=== PATIENT | male | born 1970 | race Caucasian/White ===

== ENCOUNTER 2016-07-07 16:45 | Inpatient (IN) | payer MEDICARE ==
[~2016-07-07] VITALS: Ht 175.3 cm; Wt 80.0 kg
[2016-07-07] VITALS (7 sets, daily range): BP systolic 101–117; BP diastolic 60–80
[~2016-07-07 16:45] MED LIST: DULO60CA44 PO; PANT40TA25 PO; QUET200T PO
[2016-07-07] MEDS ORDERED: ZOLPIDEM TARTRATE 10 MG TABLET PO PRN (17:15)
[2016-07-08] VITALS (7 sets, daily range): BP systolic 101–113; BP diastolic 62–72
[2016-07-08 08:14] LABS: BASOPHILS % (AUTO) 0.8 % (0.0-2.0); EOSINOPHILS % (AUTO) 6.2 % (1.0-6.0); HEMATOCRIT 53.8 % (41-53); HEMOGLOBIN 17.6 g/dL (13.5-17.5); LYMPHOCYTES # (AUTO) 1.7 K/uL (1.0-4.8); LYMPHOCYTES % (AUTO) 32.2 % (22.0-44.0); MEAN CORPUSCULAR HEMOGLOBIN 33.6 pg (26.0-34.0); MEAN CORPUSCULAR HGB CONC 32.8 G/dL (31.0-37.0); MEAN CORPUSCULAR VOLUME 103 fL (80-100); MONOCYTES # (AUTO) 0.5 K/uL (0.1-1.0); MONOCYTES % (AUTO) 10.5 % (2.0-9.0); NEUTROPHILS # (AUTO) 2.6 K/uL (1.8-7.7); NEUTROPHILS % (AUTO) 50.3 % (40.0-70.0); PLATELET COUNT (AUTO) 162 K/uL (150-450); RED BLOOD CELL COUNT(AUTO) 5.24 MIL/uL (4.50-5.90); WHITE BLOOD COUNT (AUTO) 5.2 K/uL (4.5-11.0)
[2016-07-08 08:16] LABS: HEMOGLOBIN A1C 5.1 % (4.5-6.2)
[2016-07-08 08:35] LABS: ALANINE AMINOTRANSFERASE 35 U/L (12-78); ALBUMIN 3.5 g/dL (3.4-5.0); ANION GAP 8 mmol/L (8-16); ASPARTATE AMINOTRANSFERASE 30 U/L (15-37); BILIRUBIN,TOTAL 0.5 mg/dL (0.1-1.0); CALCIUM, TOTAL 8.8 mg/dL (8.8-10.5); CARBON DIOXIDE 29 mmol/L (22-29); CHLORIDE 102 mmol/L (98-107); GLOMERULAR FILTR. RATE CALC > 60 mL/min (>60); POTASSIUM 3.8 mmol/L (3.5-5.1); SODIUM SERUM 139 mmol/L (136-145); THYROID STIMULATING HORMONE 1.51 uIU/mL (0.36-3.74); TOTAL PROTEIN, SERUM 6.9 g/dL (6.4-8.2); UREA NITROGEN, BLOOD 12 mg/dL (7-18)
[2016-07-08 08:50] LABS: RBC MORPHOLOGY COMMENT ABNORMAL RBC MORPH
[2016-07-08 08:51] LABS: CREATINE KINASE MB 0.5 ng/mL (0-5); CREATINE KINASE, TOTAL 86 U/L (39-308)
[2016-07-08] MEDS: PANTOPRAZOLE SODIUM 40 MG DR TABLET PO SCH (09:05)
[2016-07-08] MEDS: NICOTINE 14 MG/24 HOUR PATCH TD SCH (09:06)
[2016-07-08] MEDS: LORazepam 2 MG TABLET PO PRN ×2 (09:10→16:22)
[2016-07-08] MEDS: DULoxetine HCL 60 MG CAPSULE PO SCH (10:39)
[2016-07-08] MEDS: QUEtiapine FUMARATE 200 MG TABLET PO SCH (20:33)
[2016-07-09 06:39] VITALS: BP 107/63
[2016-07-09] MEDS: DULoxetine HCL 60 MG CAPSULE PO SCH (08:28)
[2016-07-09] MEDS: PANTOPRAZOLE SODIUM 40 MG DR TABLET PO SCH (08:28)
[2016-07-09] MEDS: NICOTINE 14 MG/24 HOUR PATCH TD SCH (08:28)
[2016-07-09] MEDS: LORazepam 2 MG TABLET PO PRN (08:34)
[2016-07-09 15:10] LABS: HEPATITIS Bs ANTIGEN SCREEN P Negative (Negative); HEPATITIS C AB SCREEN <0.1 s/co ratio (0.0-0.9)
[2016-07-09 16:08] VITALS: BP 104/62
[2016-07-09] MEDS: QUEtiapine FUMARATE 200 MG TABLET PO SCH (20:37)
[2016-07-10] VITALS: BP 103/69
[2016-07-10 00:04] VITALS: BP 101/66
[2016-07-10 08:11] VITALS: BP 111/67
[2016-07-10] MEDS: PANTOPRAZOLE SODIUM 40 MG DR TABLET PO SCH (08:32)
[2016-07-10] MEDS: NICOTINE 14 MG/24 HOUR PATCH TD SCH (08:33)
[2016-07-10] MEDS: DULoxetine HCL 60 MG CAPSULE PO SCH (08:33)
[2016-07-10] MEDS: LORazepam 2 MG TABLET PO PRN (08:39)
[2016-07-10 16:07] VITALS: BP 105/65
[2016-07-10] MEDS: QUEtiapine FUMARATE 200 MG TABLET PO SCH (20:35)
[2016-07-11 00:44] VITALS: BP 103/62
[2016-07-11 08:08] VITALS: BP 108/62
[2016-07-11 08:21] LABS: BASOPHILS # (AUTO) 0.02 K/uL (0.00-0.20); BASOPHILS % (AUTO) 0.4 % (0.0-2.0); EOSINOPHILS # (AUTO) 0.38 K/uL (0.00-0.70); EOSINOPHILS % (AUTO) 6.86 % (1.0-6.0); HEMATOCRIT 52.8 % (41-53); HEMOGLOBIN 17.7 g/dL (13.5-17.5); LYMPHOCYTES # (AUTO) 1.8 K/uL (1.0-4.8); LYMPHOCYTES % (AUTO) 31.4 % (22.0-44.0); MEAN CORPUSCULAR HEMOGLOBIN 34.5 pg (26.0-34.0); MEAN CORPUSCULAR HGB CONC 33.5 G/dL (31.0-37.0); MEAN CORPUSCULAR VOLUME 103 fL (80-100); MONOCYTES # (AUTO) 0.6 K/uL (0.1-1.0); MONOCYTES % (AUTO) 11.3 % (2.0-9.0); NEUTROPHILS # (AUTO) 2.8 K/uL (1.8-7.7); PLATELET COUNT (AUTO) 178 K/uL (150-450); RED BLOOD CELL COUNT(AUTO) 5.13 MIL/uL (4.50-5.90); RED CELL DISTRIBUTION WIDTH 13.9 % (11.5-14.5); WHITE BLOOD COUNT (AUTO) 5.6 K/uL (4.5-11.0)
[2016-07-11] MEDS: PANTOPRAZOLE SODIUM 40 MG DR TABLET PO SCH (08:22)
[2016-07-11] MEDS: DULoxetine HCL 60 MG CAPSULE PO SCH (08:22)
[2016-07-11] MEDS: NICOTINE 14 MG/24 HOUR PATCH TD SCH (08:23)
[2016-07-11 08:49] LABS: RBC MORPHOLOGY COMMENT ABNORMAL RBC MORPH
[2016-07-11 08:51] LABS: ALANINE AMINOTRANSFERASE 39 U/L (12-78); ALBUMIN 3.4 g/dL (3.4-5.0); ANION GAP 4 mmol/L (8-16); ASPARTATE AMINOTRANSFERASE 30 U/L (15-37); BILIRUBIN,TOTAL 0.4 mg/dL (0.1-1.0); CARBON DIOXIDE 32 mmol/L (22-29); CHLORIDE 102 mmol/L (98-107); CREATINE KINASE, TOTAL 48 U/L (39-308); CREATININE 0.96 mg/dL (0.60-1.30); GLOMERULAR FILTR. RATE CALC > 60 mL/min (>60); POTASSIUM 4.5 mmol/L (3.5-5.1); SODIUM SERUM 138 mmol/L (136-145); TOTAL PROTEIN, SERUM 6.5 g/dL (6.4-8.2); UREA NITROGEN, BLOOD 18 mg/dL (7-18)
[2016-07-11] MEDS: LORazepam 2 MG TABLET PO PRN ×2 (09:00→14:57)
[2016-07-11 16:00] VITALS: BP 116/71
[2016-07-11] MEDS: QUEtiapine FUMARATE 200 MG TABLET PO SCH (20:45)
[2016-07-12 00:05] VITALS: BP 106/64
[2016-07-12] MEDS: PANTOPRAZOLE SODIUM 40 MG DR TABLET PO SCH (08:01)
[2016-07-12] MEDS: DULoxetine HCL 60 MG CAPSULE PO SCH (08:01)
[2016-07-12] MEDS: NICOTINE 14 MG/24 HOUR PATCH TD SCH (08:01)
[2016-07-12 08:58] LABS: APPEARANCE,URINE CLEAR (CLEAR); GLUCOSE, URINE (UA) NEGATIVE (NEGATIVE); KETONES,URINE NEGATIVE (NEGATIVE); LEUKOCYTE ESTERASE ,URINE TRACE (NEGATIVE); OCCULT BLOOD,URINE NEGATIVE (NEGATIVE); PROTEIN,URINE NEGATIVE (NEGATIVE)
[2016-07-12 09:31] LABS: ADD UA MICROSCOPIC YES
[2016-07-12 09:41] LABS: RBC,URINE None Seen /HPF (0-2); SQUAMOUS EPITHELIAL CELL,UR Few /LPF (None Seen); WBC,URINE 0-2 /HPF (0-5)
[2016-07-12] MEDS: LORazepam 2 MG TABLET PO PRN (14:44)
[2016-07-12 16:02] VITALS: BP 110/67
[2016-07-12] MEDS: QUEtiapine FUMARATE 200 MG TABLET PO SCH (20:21)
[2016-07-13 06:31] VITALS: BP 100/68
[2016-07-13 07:57] VITALS: BP 101/60
[2016-07-13 08:33] VITALS: BP 101/60
[2016-07-13] MEDS: NICOTINE 14 MG/24 HOUR PATCH TD SCH (08:45)
[2016-07-13] MEDS: DULoxetine HCL 60 MG CAPSULE PO SCH (08:45)
[2016-07-13] MEDS: PANTOPRAZOLE SODIUM 40 MG DR TABLET PO SCH (08:45)
[2016-07-13] MEDS: LORazepam 2 MG TABLET PO PRN ×2 (12:14→17:27)
[2016-07-13 16:05] VITALS: BP 101/72
[2016-07-13] MEDS: QUEtiapine FUMARATE 200 MG TABLET PO SCH (20:38)
[2016-07-14 07:09] VITALS: BP 121/72
[2016-07-14] MEDS: DULoxetine HCL 60 MG CAPSULE PO SCH (08:15)
[2016-07-14] MEDS: LORazepam 2 MG TABLET PO PRN (08:15)
[2016-07-14] MEDS: PANTOPRAZOLE SODIUM 40 MG DR TABLET PO SCH (08:15)
[2016-07-14] MEDS: NICOTINE 14 MG/24 HOUR PATCH TD SCH (08:15)
[2016-07-14 08:24] VITALS: BP 106/74
== END 2016-07-14 12:20 | disposition home or self-care (01) | DRG 885 ==
LOC: B2X 17:25 → B2S 17:25 → EDSTATUS 17:27
PROVIDERS: ADMIT Psychiatry & Neurology Child & Adolescent Psychiatry; ATTEND Psychiatry & Neurology Child & Adolescent Psychiatry
DX: F31.4 Bipolar disorder, current episode depressed, severe, without psychotic features (principal); N39.0 Urinary tract infection, site not specified; R45.851 Suicidal ideations; K21.9 Gastro-esophageal reflux disease without esophagitis; E88.09 Other disorders of plasma-protein metabolism, not elsewhere classified; E78.5 Hyperlipidemia, unspecified; D75.1 Secondary polycythemia; F15.10 Other stimulant abuse, uncomplicated; F17.210 Nicotine dependence, cigarettes, uncomplicated; K70.10 Alcoholic hepatitis without ascites; G47.00 Insomnia, unspecified; F19.10 Other psychoactive substance abuse, uncomplicated; Z59.9 Problem related to housing and economic circumstances, unspecified; Z71.89 Other specified counseling; Z82.49 Family history of ischemic heart disease and other diseases of the circulatory system; Z82.3 Family history of stroke; Z79.899 Other long term (current) drug therapy
CPT/HCPCS: 80074; 83036; 83735; 84439; 84443

== ENCOUNTER 2016-11-08 21:31 | Inpatient (IN) | payer MEDICARE ==
[~2016-11-08] VITALS: Ht 175.3 cm; Wt 77.7 kg
[2016-11-08] MEDS ORDERED: HALOPERIDOL 5 MG TABLET PO PRN (22:15)
[2016-11-08] MEDS ORDERED: ZOLPIDEM TARTRATE 10 MG TABLET PO PRN (22:15)
[2016-11-08 22:19] VITALS: BP 114/76
[2016-11-09 00:02] VITALS: BP 119/83
[2016-11-09] MEDS ORDERED: INFLUENZA VIRUS VACCINE QVS 2017-18 (3YR+)/PF 60 MCG/0.5 ML SYRINGE IM ONE (00:15)
[2016-11-09] MEDS: LORazepam 2 MG TABLET PO PRN ×3 (00:18→17:14)
[2016-11-09 07:36] LABS: BASOPHILS % (AUTO) 0.8 % (0.0-2.0); EOSINOPHILS % (AUTO) 2.9 % (1.0-6.0); HEMATOCRIT 45.7 % (41-53); HEMOGLOBIN 15.7 g/dL (13.5-17.5); LYMPHOCYTES # (AUTO) 2.3 K/uL (1.0-4.8); LYMPHOCYTES % (AUTO) 36.4 % (22.0-44.0); MEAN CORPUSCULAR HEMOGLOBIN 35.4 pg (26.0-34.0); MEAN CORPUSCULAR HGB CONC 34.5 G/dL (31.0-37.0); MEAN CORPUSCULAR VOLUME 103 fL (80-100); MONOCYTES # (AUTO) 0.7 K/uL (0.1-1.0); MONOCYTES % (AUTO) 11.1 % (2.0-9.0); NEUTROPHILS # (AUTO) 3.1 K/uL (1.8-7.7); NEUTROPHILS % (AUTO) 48.8 % (40.0-70.0); PLATELET COUNT (AUTO) 197 K/uL (150-450); RED BLOOD CELL COUNT(AUTO) 4.44 MIL/uL (4.50-5.90); RED CELL DISTRIBUTION WIDTH 12.8 % (11.5-14.5); WHITE BLOOD COUNT (AUTO) 6.3 K/uL (4.5-11.0)
[2016-11-09 07:51] LABS: ALANINE AMINOTRANSFERASE 48 U/L (12-78); ALBUMIN 3.3 g/dL (3.4-5.0); ANION GAP 9 mmol/L (8-16); ASPARTATE AMINOTRANSFERASE 53 U/L (15-37); BILIRUBIN,TOTAL 0.4 mg/dL (0.1-1.0); CALCIUM, TOTAL 9.7 mg/dL (8.8-10.5); CARBON DIOXIDE 32 mmol/L (22-29); CHLORIDE 99 mmol/L (98-107); CHOL/HDL RATIO 3.1 (4.2-7.3); CREATININE 0.88 mg/dL (0.60-1.30); GLOMERULAR FILTR. RATE CALC > 60 mL/min (>60); POTASSIUM 4.2 mmol/L (3.5-5.1); SODIUM SERUM 140 mmol/L (136-145); TOTAL PROTEIN, SERUM 6.7 g/dL (6.4-8.2); UREA NITROGEN, BLOOD 11 mg/dL (7-18)
[2016-11-09 07:55] LABS: HEMOGLOBIN A1C 4.9 % (4.5-6.2)
[2016-11-09 08:17] VITALS: BP 115/69
[2016-11-09] MEDS: NICOTINE 21 MG/24 HOUR PATCH TD SCH (08:41)
[2016-11-09] MEDS ORDERED: NICOTINE 21 MG/24 HOUR PATCH TD SCH (09:00)
[2016-11-09 09:49] LABS: RBC MORPHOLOGY COMMENT ABNORMAL RBC MORPH
[2016-11-09] MEDS: PANTOPRAZOLE SODIUM 40 MG DR TABLET PO SCH (10:29)
[2016-11-09 16:11] VITALS: BP 105/72
[2016-11-10 06:03] VITALS: BP 104/60
[2016-11-10] MEDS: DULoxetine HCL 60 MG CAPSULE PO SCH (08:18)
[2016-11-10] MEDS: NICOTINE 21 MG/24 HOUR PATCH TD SCH (08:18)
[2016-11-10] MEDS: PANTOPRAZOLE SODIUM 40 MG DR TABLET PO SCH (08:18)
[2016-11-10] MEDS: LORazepam 2 MG TABLET PO PRN ×2 (08:29→15:39)
[2016-11-10 08:39] VITALS: BP 108/69
[2016-11-10 16:11] VITALS: BP 112/78
[2016-11-10] MEDS: QUEtiapine FUMARATE 200 MG TABLET PO SCH (20:35)
[2016-11-11 01:49] VITALS: BP 100/60
[2016-11-11 08:50] VITALS: BP 98/62
[2016-11-11] MEDS: DULoxetine HCL 60 MG CAPSULE PO SCH (09:17)
[2016-11-11] MEDS: NICOTINE 21 MG/24 HOUR PATCH TD SCH (09:17)
[2016-11-11] MEDS: PANTOPRAZOLE SODIUM 40 MG DR TABLET PO SCH (09:17)
[2016-11-11] MEDS: LORazepam 2 MG TABLET PO PRN (13:27)
[2016-11-11 16:26] VITALS: BP 99/75
[2016-11-11] MEDS: QUEtiapine FUMARATE 200 MG TABLET PO SCH (20:34)
[2016-11-12 00:51] VITALS: BP 101/67
[2016-11-12 08:09] VITALS: BP 106/68
[2016-11-12] MEDS: PANTOPRAZOLE SODIUM 40 MG DR TABLET PO SCH (08:35)
[2016-11-12] MEDS: DULoxetine HCL 60 MG CAPSULE PO SCH (08:35)
[2016-11-12] MEDS: NICOTINE 21 MG/24 HOUR PATCH TD SCH (08:35)
[2016-11-12] MEDS: LORazepam 2 MG TABLET PO PRN ×2 (09:58→16:00)
[2016-11-12 16:08] VITALS: BP 112/72
[2016-11-12] MEDS: QUEtiapine FUMARATE 200 MG TABLET PO SCH (20:58)
[2016-11-13 00:55] VITALS: BP 110/67
[2016-11-13 09:07] VITALS: BP 103/61
[2016-11-13] MEDS: DULoxetine HCL 60 MG CAPSULE PO SCH (09:07)
[2016-11-13] MEDS: PANTOPRAZOLE SODIUM 40 MG DR TABLET PO SCH (09:07)
[2016-11-13] MEDS: NICOTINE 21 MG/24 HOUR PATCH TD SCH (09:07)
[2016-11-13 11:10] VITALS: BP 110/77
[2016-11-13] MEDS: LORazepam 2 MG TABLET PO PRN ×2 (11:14→15:57)
[2016-11-13 16:23] VITALS: BP 109/69
[2016-11-13] MEDS: QUEtiapine FUMARATE 200 MG TABLET PO SCH (20:37)
[2016-11-14 00:09] VITALS: BP 103/66
[2016-11-14] MEDS: DULoxetine HCL 60 MG CAPSULE PO SCH (08:36)
[2016-11-14] MEDS: PANTOPRAZOLE SODIUM 40 MG DR TABLET PO SCH (08:36)
[2016-11-14] MEDS: NICOTINE 21 MG/24 HOUR PATCH TD SCH (08:37)
[2016-11-14 08:42] VITALS: BP 105/63
[2016-11-14] MEDS ORDERED: ACETAMINOPHEN 325 MG TABLET PO PRN (11:00)
== END 2016-11-14 13:10 | disposition home or self-care (01) | DRG 885 ==
LOC: B2X 22:04 → EDSTATUS 22:06
PROVIDERS: ADMIT Psychiatry & Neurology Psychiatry; ATTEND Psychiatry & Neurology Child & Adolescent Psychiatry
DX: F25.1 Schizoaffective disorder, depressive type (principal); F31.4 Bipolar disorder, current episode depressed, severe, without psychotic features; R45.851 Suicidal ideations; E78.5 Hyperlipidemia, unspecified; F15.10 Other stimulant abuse, uncomplicated; R51 Headache; K21.9 Gastro-esophageal reflux disease without esophagitis; Z72.89 Other problems related to lifestyle; Z79.899 Other long term (current) drug therapy
CPT/HCPCS: 83036; 84439; 84443; 90471; 99285

== ENCOUNTER 2017-06-29 11:43 | Inpatient (IN) | payer MEDICARE, MEDICAID ==
[~2017-06-29] VITALS: Ht 175.3 cm; Wt 79.1 kg
[2017-06-29 14:27] VITALS: BP 94/67
[2017-06-29] MEDS ORDERED: MAG HYDROX/AL HYDROX/SIMETH ES 30 ML SUSPENSION UDCUP PO PRN (14:45)
[2017-06-29] MEDS ORDERED: HydrOXYzine PAMOATE 50 MG CAPSULE PO PRN ×2 (14:45)
[2017-06-29] MEDS ORDERED: TUBERCULIN, PURIFIED PROTEIN DERIVATIVE 5 TU/0.1 ML SYG ID ONE (14:45)
[2017-06-29] MEDS ORDERED: ACETAMINOPHEN 325 MG TABLET PO PRN (14:45)
[2017-06-29] MEDS ORDERED: QUEtiapine FUMARATE 100 MG TABLET PO PRN (14:45)
[2017-06-29] MEDS ORDERED: DIAZEPAM 10 MG TABLET PO PRN ×2 (14:45)
[2017-06-29] MEDS ORDERED: CYANOCOBALAMIN 1,000 MCG/ML VIAL IM ONE ×2 (14:45)
[2017-06-29] MEDS ORDERED: MAGNESIUM HYDROXIDE SUSPENSION 30 ML UDCUP PO PRN (14:45)
[2017-06-29] MEDS ORDERED: GuaiFENesin/D-METHORPHAN [SUGAR-FREE] 200-20MG/10 ML SYRUP UDCUP PO PRN ×2 (14:45)
[2017-06-29] MEDS ORDERED: PROMETHAZINE HCL 25 MG TABLET PO PRN (14:45)
[2017-06-29] MEDS ORDERED: LOPERAMIDE HCL 2 MG CAPSULE PO PRN ×2 (14:45)
[2017-06-29] MEDS ORDERED: GABA-531 PO (15:17)
[2017-06-29 15:30] VITALS: BP 110/69
[2017-06-29 16:05] VITALS: BP_SYST 105; BP_SYST 107; BP_DIAS 64; BP_DIAS 67
[2017-06-29] MEDS ORDERED: THIAMINE HCL 100 MG TABLET PO SCH (17:00)
[2017-06-29 17:05] VITALS: BP 101/61
[2017-06-29] MEDS: THIAMINE HCL 100 MG TABLET PO SCH (17:28)
[2017-06-29 18:01] VITALS: BP 105/68
[2017-06-29] MEDS: QUEtiapine FUMARATE 100 MG TABLET PO SCH (21:02)
[2017-06-29 22:11] VITALS: BP 112/60
[2017-06-30] VITALS (8 sets, daily range): BP systolic 101–123; BP diastolic 61–71
[2017-06-30] MEDS ORDERED: DIAZEPAM 10 MG TABLET PO PRN ×2 (07:00)
[2017-06-30 08:55] LABS: BASOPHILS % (AUTO) 0.7 % (0.0-2.0); EOSINOPHILS % (AUTO) 5.1 % (1.0-6.0); HEMATOCRIT 42.8 % (41-53); HEMOGLOBIN 15.2 g/dL (13.5-17.5); LYMPHOCYTES # (AUTO) 1.2 K/uL (1.0-4.8); LYMPHOCYTES % (AUTO) 30.3 % (22.0-44.0); MEAN CORPUSCULAR HEMOGLOBIN 34.6 pg (26.0-34.0); MEAN CORPUSCULAR HGB CONC 35.6 G/dL (31.0-37.0); MEAN CORPUSCULAR VOLUME 97 fL (80-100); MONOCYTES # (AUTO) 0.5 K/uL (0.1-1.0); MONOCYTES % (AUTO) 12.6 % (2.0-9.0); NEUTROPHILS % (AUTO) 51.3 % (40.0-70.0); PLATELET COUNT (AUTO) 199 K/uL (150-450); RED CELL DISTRIBUTION WIDTH 12.9 % (11.5-14.5)
[2017-06-30] MEDS ORDERED: DIAZEPAM 10 MG TABLET PO SCH (09:00)
[2017-06-30] MEDS ORDERED: FOLIC ACID 1 MG TABLET PO SCH (09:00)
[2017-06-30] MEDS ORDERED: MULTIVITAMINS WITH MINERALS, THERAPEUTIC TABLET PO SCH (09:00)
[2017-06-30] MEDS: DIAZEPAM 10 MG TABLET PO SCH ×4 (09:18→20:52)
[2017-06-30] MEDS: MULTIVITAMINS WITH MINERALS, THERAPEUTIC TABLET PO SCH (09:18)
[2017-06-30] MEDS: FOLIC ACID 1 MG TABLET PO SCH (09:18)
[2017-06-30] MEDS: PANTOPRAZOLE SODIUM 40 MG DR TABLET PO SCH (09:18)
[2017-06-30] MEDS: THIAMINE HCL 100 MG TABLET PO SCH ×2 (09:19→17:02)
[2017-06-30] MEDS: DULoxetine HCL 20 MG CAPSULE PO SCH (09:19)
[2017-06-30 09:24] LABS: ALANINE AMINOTRANSFERASE 55 U/L (12-78); ALBUMIN 3.4 g/dL (3.4-5.0); ALKALINE PHOSPHATASE 89 U/L (46-116); ANION GAP 6 mmol/L (8-16); ASPARTATE AMINOTRANSFERASE 43 U/L (15-37); BILIRUBIN,TOTAL 0.5 mg/dL (0.1-1.0); CALCIUM, TOTAL 8.8 mg/dL (8.8-10.5); CARBON DIOXIDE 32 mmol/L (22-29); CHLORIDE 103 mmol/L (98-107); CHOL/HDL RATIO 2.7 (4.2-7.3); CHOLESTEROL 197 mg/dL (131-200); CREATININE 0.83 mg/dL (0.60-1.30); FREE T4 (FREE THYROXINE) 0.95 ng/dL (0.76-1.46); GLOMERULAR FILTR. RATE CALC > 60 mL/min (>60); GLUCOSE,RANDOM 86 mg/dL (70-110); HDL CHOLESTEROL 73 mg/dL (40-60); LDL CHOL (CALC.) 108 mg/dL (0-130); POTASSIUM 4.3 mmol/L (3.5-5.1); SODIUM SERUM 141 mmol/L (136-145); THYROID STIMULATING HORMONE 1.35 uIU/mL (0.36-3.74); TOTAL PROTEIN, SERUM 6.8 g/dL (6.4-8.2); TRIGLYCERIDES 79 mg/dL (15-150); UREA NITROGEN, BLOOD 10 mg/dL (7-18)
[2017-06-30 09:48] LABS: HEMOGLOBIN A1C 5.7 % (4.5-6.2)
[2017-06-30] MEDS: QUEtiapine FUMARATE 100 MG TABLET PO SCH (20:53)
[2017-07-01] VITALS (7 sets, daily range): BP systolic 100–110; BP diastolic 61–84
[2017-07-01] MEDS: PANTOPRAZOLE SODIUM 40 MG DR TABLET PO SCH (09:08)
[2017-07-01] MEDS: FOLIC ACID 1 MG TABLET PO SCH (09:08)
[2017-07-01] MEDS: DIAZEPAM 10 MG TABLET PO SCH ×4 (09:08→20:51)
[2017-07-01] MEDS: NALTREXONE HCL 50 MG TABLET PO SCH (09:08)
[2017-07-01] MEDS: DULoxetine HCL 20 MG CAPSULE PO SCH (09:08)
[2017-07-01] MEDS: MULTIVITAMINS WITH MINERALS, THERAPEUTIC TABLET PO SCH (09:08)
[2017-07-01] MEDS: THIAMINE HCL 100 MG TABLET PO SCH ×2 (09:08→16:59)
[2017-07-01] MEDS: QUEtiapine FUMARATE 100 MG TABLET PO SCH (20:51)
[2017-07-02 04:24] VITALS: BP 101/71
[2017-07-02 06:17] VITALS: BP 110/68
[2017-07-02] MEDS ORDERED: DIAZEPAM 5 MG TABLET PO PRN ×2 (07:00)
[2017-07-02 08:26] VITALS: BP 106/69
[2017-07-02] MEDS: NALTREXONE HCL 50 MG TABLET PO SCH (08:38)
[2017-07-02] MEDS: MULTIVITAMINS WITH MINERALS, THERAPEUTIC TABLET PO SCH (08:38)
[2017-07-02] MEDS: THIAMINE HCL 100 MG TABLET PO SCH ×2 (08:38→16:07)
[2017-07-02] MEDS: DULoxetine HCL 20 MG CAPSULE PO SCH (08:38)
[2017-07-02] MEDS: FOLIC ACID 1 MG TABLET PO SCH (08:38)
[2017-07-02] MEDS: PANTOPRAZOLE SODIUM 40 MG DR TABLET PO SCH (08:38)
[2017-07-02] MEDS: DIAZEPAM 5 MG TABLET PO SCH ×4 (08:41→20:14)
[2017-07-02] MEDS ORDERED: DIAZEPAM 5 MG TABLET PO SCH (09:00)
[2017-07-02] MEDS ORDERED: LOPERAMIDE HCL 2 MG CAPSULE PO PRN (14:45)
[2017-07-02 16:04] VITALS: BP 112/68
[2017-07-02] MEDS ORDERED: QUEtiapine FUMARATE 200 MG TABLET PO SCH (21:00)
[2017-07-02] MEDS: ZOLPIDEM TARTRATE 10 MG TABLET PO PRN (22:46)
[2017-07-03 00:54] VITALS: BP 103/61
[2017-07-03] MEDS ORDERED: DIAZEPAM 5 MG TABLET PO PRN (07:00)
[2017-07-03] MEDS: DULoxetine HCL 20 MG CAPSULE PO SCH (08:54)
[2017-07-03] MEDS: THIAMINE HCL 100 MG TABLET PO SCH ×2 (08:54→17:12)
[2017-07-03] MEDS: FOLIC ACID 1 MG TABLET PO SCH (08:54)
[2017-07-03] MEDS: MULTIVITAMINS WITH MINERALS, THERAPEUTIC TABLET PO SCH (08:54)
[2017-07-03] MEDS: PANTOPRAZOLE SODIUM 40 MG DR TABLET PO SCH (08:54)
[2017-07-03] MEDS: NALTREXONE HCL 50 MG TABLET PO SCH (08:54)
[2017-07-03] MEDS: DIAZEPAM 5 MG TABLET PO PRN ×2 (12:42→17:12)
[2017-07-03 12:43] VITALS: BP 105/70
[2017-07-03 16:11] VITALS: BP 106/68
[2017-07-03] MEDS: QUEtiapine FUMARATE 200 MG TABLET PO SCH (20:20)
[2017-07-04 01:01] VITALS: BP 102/61
[2017-07-04] MEDS: MULTIVITAMINS WITH MINERALS, THERAPEUTIC TABLET PO SCH (08:55)
[2017-07-04] MEDS: THIAMINE HCL 100 MG TABLET PO SCH ×2 (08:55→16:07)
[2017-07-04] MEDS: NALTREXONE HCL 50 MG TABLET PO SCH (08:55)
[2017-07-04] MEDS: DULoxetine HCL 20 MG CAPSULE PO SCH (08:55)
[2017-07-04] MEDS: FOLIC ACID 1 MG TABLET PO SCH (08:55)
[2017-07-04] MEDS: PANTOPRAZOLE SODIUM 40 MG DR TABLET PO SCH (08:55)
[2017-07-04 10:55] VITALS: BP 109/62
[2017-07-04 16:12] VITALS: BP 106/68
[2017-07-04] MEDS: QUEtiapine FUMARATE 200 MG TABLET PO SCH (20:11)
[2017-07-04] MEDS: ZOLPIDEM TARTRATE 10 MG TABLET PO PRN (20:33)
[2017-07-05 06:13] VITALS: BP 103/62
[2017-07-05 08:23] VITALS: BP 104/61
[2017-07-05] MEDS: MULTIVITAMINS WITH MINERALS, THERAPEUTIC TABLET PO SCH (09:07)
[2017-07-05] MEDS: FOLIC ACID 1 MG TABLET PO SCH (09:07)
[2017-07-05] MEDS: PANTOPRAZOLE SODIUM 40 MG DR TABLET PO SCH (09:07)
[2017-07-05] MEDS: THIAMINE HCL 100 MG TABLET PO SCH ×2 (09:07→16:06)
[2017-07-05] MEDS: DULoxetine HCL 20 MG CAPSULE PO SCH (09:07)
[2017-07-05] MEDS: NALTREXONE HCL 50 MG TABLET PO SCH (09:07)
[2017-07-05 16:46] VITALS: BP 109/65
[2017-07-05] MEDS: ZOLPIDEM TARTRATE 10 MG TABLET PO PRN (20:41)
[2017-07-05] MEDS: QUEtiapine FUMARATE 200 MG TABLET PO SCH (20:41)
[2017-07-06 05:27] VITALS: BP 100/61
[2017-07-06] MEDS: PANTOPRAZOLE SODIUM 40 MG DR TABLET PO SCH (08:42)
[2017-07-06] MEDS: NALTREXONE HCL 50 MG TABLET PO SCH (08:42)
[2017-07-06] MEDS: THIAMINE HCL 100 MG TABLET PO SCH (08:42)
[2017-07-06] MEDS: FOLIC ACID 1 MG TABLET PO SCH (08:42)
[2017-07-06] MEDS: MULTIVITAMINS WITH MINERALS, THERAPEUTIC TABLET PO SCH (08:42)
[2017-07-06] MEDS: DULoxetine HCL 20 MG CAPSULE PO SCH (08:42)
[2017-07-06 09:27] VITALS: BP 100/55
[2017-07-06] MEDS ORDERED: QUET200T PO (12:23)
[2017-07-06] MEDS ORDERED: DULO60CA44 PO (12:23)
[2017-07-06] MEDS ORDERED: NALT50TA6 PO (12:25)
[2017-07-06] MEDS ORDERED: PANT40TA25 PO (12:25)
== END 2017-07-06 14:00 | disposition home or self-care (01) | DRG 885 ==
LOC: B3A 13:00 → B2S 18:48
PROVIDERS: ADMIT Psychiatry & Neurology Psychiatry; ATTEND Psychiatry & Neurology Psychiatry
PROC: HZ2ZZZZ Detoxification Services for Substance Abuse Treatment (ICD-10-PCS; principal; 2017-06-29)
DX: F31.4 Bipolar disorder, current episode depressed, severe, without psychotic features (principal); R45.851 Suicidal ideations; F15.20 Other stimulant dependence, uncomplicated; Z91.19 Patient's noncompliance with other medical treatment and regimen; D72.819 Decreased white blood cell count, unspecified; E78.5 Hyperlipidemia, unspecified; F41.0 Panic disorder [episodic paroxysmal anxiety]; F10.20 Alcohol dependence, uncomplicated; K21.9 Gastro-esophageal reflux disease without esophagitis; R79.89 Other specified abnormal findings of blood chemistry; K30 Functional dyspepsia; F17.200 Nicotine dependence, unspecified, uncomplicated; F15.90 Other stimulant use, unspecified, uncomplicated; Z59.0 Homelessness; Z81.8 Family history of other mental and behavioral disorders; Z82.3 Family history of stroke
CPT/HCPCS: 83036; 84439; 84443; 86592; G0480; J3420

== ENCOUNTER 2019-02-07 14:39 | Emergency (ER) | payer MEDICARE, MEDICAID ==
[~2019-02-07] VITALS: Ht 180.3 cm; Wt 79.5 kg
[~2019-02-07 14:39] MED LIST changes: +NALT50TA6 PO
[2019-02-07] MEDS ORDERED: OMEP10 PO (16:01)
[2019-02-07 16:05] VITALS: BP 142/99
== END 2019-02-07 19:07 | disposition left against medical advice (07) ==
LOC: EMS 14:42
DX: F32.9 Major depressive disorder, single episode, unspecified (principal); Z53.21 Procedure and treatment not carried out due to patient leaving prior to being seen by health care provider

== ENCOUNTER 2020-08-23 15:21 | Inpatient (IN) | payer MEDICARE, MEDICAID ==
[~2020-08-23] VITALS: Ht 175.3 cm; Wt 80.7 kg
[~2020-08-23 15:21] MED LIST changes: +DULO-8 PO; -DULO60CA44 PO; +OMEP10 PO; -PANT40TA25 PO
[2020-08-23 17:22] LABS: BASOPHILS % (AUTO) 0.7 % (0.0-2.0); EOSINOPHILS % (AUTO) 3.8 % (1.0-6.0); HEMATOCRIT 45.4 % (41-53); HEMOGLOBIN 15.5 g/dL (13.5-17.5); LYMPHOCYTES # (AUTO) 1.6 K/uL (1.0-4.8); LYMPHOCYTES % (AUTO) 29.4 % (22.0-44.0); MEAN CORPUSCULAR HEMOGLOBIN 34.7 pg (26.0-34.0); MEAN CORPUSCULAR HGB CONC 34.2 G/dL (31.0-37.0); MEAN CORPUSCULAR VOLUME 102 fL (80-100); MONOCYTES # (AUTO) 0.7 K/uL (0.1-1.0); MONOCYTES % (AUTO) 12.5 % (2.0-9.0); NEUTROPHILS # (AUTO) 2.9 K/uL (1.8-7.7); NEUTROPHILS % (AUTO) 53.6 % (40.0-70.0); PLATELET COUNT (AUTO) 243 K/uL (150-450); RED BLOOD CELL COUNT(AUTO) 4.47 MIL/uL (4.50-5.90)
[2020-08-23 17:41] LABS: ANION GAP 8 mmol/L (8-16); CALCIUM, TOTAL 8.6 mg/dL (8.8-10.5); CARBON DIOXIDE 29 mmol/L (22-29); CHLORIDE 102 mmol/L (98-107); CREATININE 1.17 mg/dL (0.60-1.30); GLOMERULAR FILTR. RATE CALC > 60 mL/min (>60); GLUCOSE,RANDOM 116 mg/dL (70-110); POTASSIUM 3.3 mmol/L (3.5-5.1); SODIUM SERUM 139 mmol/L (136-145); UREA NITROGEN, BLOOD 15 mg/dL (7-18)
[2020-08-23 17:48] LABS: ALANINE AMINOTRANSFERASE 78 U/L (12-78); ALBUMIN 3.8 g/dL (3.4-5.0); ALKALINE PHOSPHATASE 127 U/L (46-116); ASPARTATE AMINOTRANSFERASE 50 U/L (15-37); BILIRUBIN,TOTAL 0.3 mg/dL (0.1-1.0); TOTAL PROTEIN, SERUM 7.6 g/dL (6.4-8.2)
[2020-08-23] MEDS ORDERED: MAG HYDROX/AL HYDROX/SIMETH ES 30 ML SUSPENSION UDCUP PO ONE (21:00)
[2020-08-23] MEDS ORDERED: LORazepam 2 MG TABLET PO ONE (21:00)
[2020-08-23 21:35] LABS: COVID AG,FIA SOURCE NASOPHARYNGEAL
[2020-08-23 22:02] LABS: AMPHET/METH SCREEN,URINE POSITIVE (NEGATIVE); BARBITURATE SCREEN, URINE NEGATIVE (NEGATIVE); BENZODIAZEPINES SCREEN,URINE NEGATIVE (NEGATIVE); CANNABINOID SCREEN,URINE POSITIVE (NEGATIVE); COCAINE SCREEN,URINE NEGATIVE (NEGATIVE); METHADONE SCREEN, URINE NEGATIVE (NEGATIVE); OPIATE SCREEN,URINE NEGATIVE (NEGATIVE)
[2020-08-23 22:03] LABS: PHENCYCLIDINE SCREEN,URINE NEGATIVE (NEGATIVE)
[2020-08-24] VITALS (10 sets, daily range): BP systolic 107–141; BP diastolic 62–83
[2020-08-24] MEDS ORDERED: POTASSIUM CHLORIDE 20 MEQ ER TABLET ONE (00:19)
[2020-08-24] MEDS ORDERED: POTASSIUM CHLORIDE 20 MEQ ER TABLET PO ONE (00:30)
[2020-08-24] MEDS ORDERED: HALOPERIDOL 5 MG TABLET PO PRN (02:15)
[2020-08-24] MEDS ORDERED: MAG HYDROX/AL HYDROX/SIMETH ES 30 ML SUSPENSION UDCUP PO PRN (08:15)
[2020-08-24] MEDS ORDERED: MAGNESIUM HYDROXIDE SUSPENSION 30 ML UDCUP PO PRN (08:15)
[2020-08-24] MEDS ORDERED: NICOTINE 14 MG/24 HOUR PATCH TD PRN (08:15)
[2020-08-24] MEDS ORDERED: IBUPROFEN 400 MG TABLET PO PRN (08:15)
[2020-08-24] MEDS ORDERED: GuaiFENesin/D-METHORPHAN [SUGAR-FREE] 200-20MG/10 ML SYRUP UDCUP PO PRN (08:15)
[2020-08-24] MEDS ORDERED: ACETAMINOPHEN 325 MG TABLET PO PRN (08:15)
[2020-08-24] MEDS ORDERED: LOPERAMIDE HCL 2 MG CAPSULE PO PRN (08:15)
[2020-08-24] MEDS ORDERED: DOCUSATE SODIUM 100 MG CAPSULE PO PRN (08:15)
[2020-08-24] MEDS ORDERED: ONDANSETRON HCL 4 MG TABLET PO PRN (08:15)
[2020-08-24] MEDS ORDERED: PETROLATUM,WHITE 28 GM JELLY TP PRN (08:15)
[2020-08-24] MEDS ORDERED: CloNIDine HCL 0.1 MG TABLET PO PRN (08:15)
[2020-08-24] MEDS ORDERED: ALBUTEROL SULFATE HFA 90 MCG/PUFF 8 GM INHALER IH PRN (08:15)
[2020-08-24] MEDS: OMEPRAZOLE 10 MG CAPSULE PO SCH ×2 (08:33→13:31)
[2020-08-24] MEDS: LORazepam 2 MG TABLET PO PRN ×3 (09:06→19:31)
[2020-08-24] MEDS: DULoxetine HCL 20 MG CAPSULE PO SCH (12:33)
[2020-08-24] MEDS: QUEtiapine FUMARATE 200 MG TABLET PO SCH (21:04)
[2020-08-24] MEDS: ZOLPIDEM TARTRATE 10 MG TABLET PO PRN (21:05)
[2020-08-25] VITALS (7 sets, daily range): BP systolic 105–112; BP diastolic 62–86
[2020-08-25] MEDS: LORazepam 2 MG TABLET PO PRN ×2 (08:58→17:09)
[2020-08-25] MEDS: NALTREXONE HCL 50 MG TABLET PO SCH (08:58)
[2020-08-25] MEDS: DULoxetine HCL 20 MG CAPSULE PO SCH (08:58)
[2020-08-25] MEDS: QUEtiapine FUMARATE 200 MG TABLET PO SCH (20:34)
[2020-08-26 02:00] VITALS: BP 128/68
[2020-08-26 08:32] VITALS: BP 109/66
[2020-08-26] MEDS: DULoxetine HCL 20 MG CAPSULE PO SCH (08:51)
[2020-08-26] MEDS: OMEPRAZOLE 10 MG CAPSULE PO SCH (08:51)
[2020-08-26] MEDS: NALTREXONE HCL 50 MG TABLET PO SCH (08:51)
[2020-08-26] MEDS: LORazepam 2 MG TABLET PO PRN ×3 (08:52→20:26)
[2020-08-26 14:35] VITALS: BP 109/66
[2020-08-26 16:22] VITALS: BP 127/54
[2020-08-26 17:59] VITALS: BP 127/54
[2020-08-26] MEDS: QUEtiapine FUMARATE 200 MG TABLET PO SCH (20:16)
[2020-08-26] MEDS ORDERED: NICOTINE POLACRILEX 2 MG LOZENGE PO PRN (22:15)
[2020-08-27 03:26] VITALS: BP 107/70
[2020-08-27 08:19] VITALS: BP 100/62
[2020-08-27] MEDS: OMEPRAZOLE 10 MG CAPSULE PO SCH (09:05)
[2020-08-27] MEDS: NALTREXONE HCL 50 MG TABLET PO SCH (09:05)
[2020-08-27] MEDS: DULoxetine HCL 20 MG CAPSULE PO SCH (09:05)
[2020-08-27] MEDS: LORazepam 2 MG TABLET PO PRN ×2 (09:09→13:53)
[2020-08-27 10:00] VITALS: BP 100/60
[2020-08-27 16:22] VITALS: BP 139/72
[2020-08-27 16:42] VITALS: BP 139/2
[2020-08-27] MEDS: QUEtiapine FUMARATE 200 MG TABLET PO SCH (20:38)
[2020-08-27] MEDS: ZOLPIDEM TARTRATE 10 MG TABLET PO PRN (21:18)
[2020-08-28 01:29] VITALS: BP 101/63
[2020-08-28 01:35] VITALS: BP 101/63
[2020-08-28] MEDS: LORazepam 2 MG TABLET PO PRN ×2 (06:48→11:02)
[2020-08-28 06:53] VITALS: BP 133/83
[2020-08-28 08:15] VITALS: BP 102/62
[2020-08-28] MEDS: DULoxetine HCL 20 MG CAPSULE PO SCH (08:23)
[2020-08-28] MEDS: NALTREXONE HCL 50 MG TABLET PO SCH (08:23)
[2020-08-28] MEDS: OMEPRAZOLE 10 MG CAPSULE PO SCH (08:24)
[2020-08-28 08:29] LABS: COVID AG,FIA SOURCE NASOPHARYNGEAL
[2020-08-28 09:13] VITALS: BP 102/62
== END 2020-08-28 14:11 | disposition home or self-care (01) | DRG 885 ==
LOC: EDSEX 15:21 → EMS 15:21 → B2S 21:43
PROVIDERS: ADMIT Psychiatry & Neurology Psychiatry; ATTEND Psychiatry & Neurology Psychiatry
DX: F33.2 Major depressive disorder, recurrent severe without psychotic features (principal); R45.851 Suicidal ideations; E87.6 Hypokalemia; J44.9 Chronic obstructive pulmonary disease, unspecified; K21.9 Gastro-esophageal reflux disease without esophagitis; F10.10 Alcohol abuse, uncomplicated; Y90.9 Presence of alcohol in blood, level not specified; F19.10 Other psychoactive substance abuse, uncomplicated; E11.9 Type 2 diabetes mellitus without complications; E66.9 Obesity, unspecified; F12.90 Cannabis use, unspecified, uncomplicated; F14.10 Cocaine abuse, uncomplicated; Z59.0 Homelessness; Z87.891 Personal history of nicotine dependence; Z68.26 Body mass index [BMI] 26.0-26.9, adult; Z20.822 Contact with and (suspected) exposure to COVID-19
CPT/HCPCS: 80053; 85025; 99285; A9575; G0480

== ENCOUNTER 2020-11-18 16:25 | Inpatient (IN) | payer MEDICARE, MEDICAID ==
[~2020-11-18] VITALS: Ht 175.3 cm; Wt 80.3 kg
[~2020-11-18 16:25] MED LIST changes: -DULO-8 PO; +DULO60CA98 PO
[2020-11-18 17:03] LABS: BASOPHILS % (AUTO) 0.5 % (0.0-2.0); EOSINOPHILS % (AUTO) 3.9 % (1.0-6.0); HEMATOCRIT 43.6 % (41-53); LYMPHOCYTES # (AUTO) 1.1 K/uL (1.0-4.8); LYMPHOCYTES % (AUTO) 16.6 % (22.0-44.0); MEAN CORPUSCULAR HEMOGLOBIN 34.1 pg (26.0-34.0); MEAN CORPUSCULAR HGB CONC 34.4 G/dL (31.0-37.0); MEAN CORPUSCULAR VOLUME 99 fL (80-100); MONOCYTES # (AUTO) 0.6 K/uL (0.1-1.0); NEUTROPHILS # (AUTO) 4.8 K/uL (1.8-7.7); PLATELET COUNT (AUTO) 216 K/uL (150-450); RED CELL DISTRIBUTION WIDTH 12.8 % (11.5-14.5)
[2020-11-18 17:11] LABS: ANION GAP 14 mmol/L (8-16); CALCIUM, TOTAL 8.8 mg/dL (8.8-10.5); CARBON DIOXIDE 28 mmol/L (22-29); CHLORIDE 99 mmol/L (98-107); CREATININE 0.92 mg/dL (0.60-1.30); GLOMERULAR FILTR. RATE CALC > 60 mL/min (>60); GLUCOSE,RANDOM 112 mg/dL (70-110); POTASSIUM 3.5 mmol/L (3.5-5.1); SODIUM SERUM 141 mmol/L (136-145); UREA NITROGEN, BLOOD 10 mg/dL (7-18)
[2020-11-18 17:19] LABS: ALANINE AMINOTRANSFERASE 34 U/L (12-78); ALBUMIN 3.3 g/dL (3.4-5.0); ALKALINE PHOSPHATASE 100 U/L (46-116); ASPARTATE AMINOTRANSFERASE 36 U/L (15-37); BILIRUBIN,TOTAL 0.4 mg/dL (0.1-1.0); TOTAL PROTEIN, SERUM 7.4 g/dL (6.4-8.2)
[2020-11-18 17:22] LABS: AMPHET/METH SCREEN,URINE NEGATIVE (NEGATIVE); BARBITURATE SCREEN, URINE NEGATIVE (NEGATIVE); BENZODIAZEPINES SCREEN,URINE NEGATIVE (NEGATIVE); CANNABINOID SCREEN,URINE NEGATIVE (NEGATIVE); COCAINE SCREEN,URINE NEGATIVE (NEGATIVE); METHADONE SCREEN, URINE NEGATIVE (NEGATIVE); OPIATE SCREEN,URINE NEGATIVE (NEGATIVE); PHENCYCLIDINE SCREEN,URINE NEGATIVE (NEGATIVE)
[2020-11-18] MEDS ORDERED: QUEtiapine FUMARATE 100 MG TABLET PO ONE (17:30)
[2020-11-18] MEDS ORDERED: LORazepam 1 MG TABLET PO ONE (17:30)
[2020-11-18 18:22] LABS: COVID AG,FIA SOURCE NASOPHARYNGEAL
[2020-11-18] MEDS ORDERED: HALOPERIDOL 5 MG TABLET PO PRN (18:45)
[2020-11-19] VITALS (10 sets, daily range): BP systolic 94–122; BP diastolic 59–74
[2020-11-19 02:44] LABS: CHOL/HDL RATIO 2.3 (4.2-7.3); CHOLESTEROL 220 mg/dL (131-200); HDL CHOLESTEROL 96 mg/dL (40-60); LDL CHOL (CALC.) 100 mg/dL (0-130); TRIGLYCERIDES 122 mg/dL (15-150)
[2020-11-19] MEDS ORDERED: INFLUENZA VIRUS VACCINE QVS 2021-22 (6MO+)/PF 60 MCG/0.5 ML SYRINGE IM. ONE (03:15)
[2020-11-19] MEDS ORDERED: ONDANSETRON HCL 4 MG TABLET PO PRN (06:45)
[2020-11-19] MEDS ORDERED: GuaiFENesin/D-METHORPHAN [SUGAR-FREE] 200-20MG/10 ML SYRUP UDCUP PO PRN (06:45)
[2020-11-19] MEDS ORDERED: NICOTINE 14 MG/24 HOUR PATCH TD PRN (06:45)
[2020-11-19] MEDS ORDERED: MAGNESIUM HYDROXIDE SUSPENSION 30 ML UDCUP PO PRN (06:45)
[2020-11-19] MEDS ORDERED: MAG HYDROX/AL HYDROX/SIMETH ES 30 ML SUSPENSION UDCUP PO PRN (06:45)
[2020-11-19] MEDS ORDERED: IBUPROFEN 400 MG TABLET PO PRN (06:45)
[2020-11-19] MEDS ORDERED: PETROLATUM,WHITE 28 GM JELLY TP PRN (06:45)
[2020-11-19] MEDS ORDERED: LOPERAMIDE HCL 2 MG CAPSULE PO PRN (06:45)
[2020-11-19] MEDS ORDERED: ALBUTEROL SULFATE HFA 90 MCG/PUFF 8 GM INHALER IH PRN (06:45)
[2020-11-19] MEDS ORDERED: ACETAMINOPHEN 325 MG TABLET PO PRN (06:45)
[2020-11-19] MEDS ORDERED: CloNIDine HCL 0.1 MG TABLET PO PRN (06:45)
[2020-11-19] MEDS ORDERED: DOCUSATE SODIUM 100 MG CAPSULE PO PRN (06:45)
[2020-11-19] MEDS: OMEPRAZOLE 10 MG CAPSULE PO SCH (09:00)
[2020-11-19] MEDS: LORazepam 2 MG TABLET PO PRN ×2 (09:11→13:12)
[2020-11-19] MEDS ORDERED: LORazepam 2 MG TABLET PO PRN (11:45)
[2020-11-19] MEDS: DULoxetine HCL 60 MG CAPSULE PO SCH (13:10)
[2020-11-19] MEDS: NALTREXONE HCL 50 MG TABLET PO SCH (13:10)
[2020-11-19] MEDS: QUEtiapine FUMARATE 200 MG TABLET PO SCH (20:39)
[2020-11-20] VITALS (9 sets, daily range): BP systolic 106–128; BP diastolic 56–81
[2020-11-20] MEDS ORDERED: LORazepam 2 MG TABLET PO PRN (07:00)
[2020-11-20] MEDS: LORazepam 2 MG TABLET PO SCH ×4 (09:05→20:24)
[2020-11-20] MEDS: NALTREXONE HCL 50 MG TABLET PO SCH (09:05)
[2020-11-20] MEDS: DULoxetine HCL 60 MG CAPSULE PO SCH (09:05)
[2020-11-20] MEDS: OMEPRAZOLE 10 MG CAPSULE PO SCH (09:05)
[2020-11-20] MEDS: QUEtiapine FUMARATE 200 MG TABLET PO SCH (20:24)
[2020-11-21 00:57] VITALS: BP 103/67
[2020-11-21 09:02] VITALS: BP 101/64
[2020-11-21] MEDS: DULoxetine HCL 60 MG CAPSULE PO SCH (10:09)
[2020-11-21] MEDS: OMEPRAZOLE 10 MG CAPSULE PO SCH (10:09)
[2020-11-21] MEDS: LORazepam 2 MG TABLET PO SCH ×4 (10:09→21:25)
[2020-11-21] MEDS: NALTREXONE HCL 50 MG TABLET PO SCH (10:09)
[2020-11-21 16:21] VITALS: BP 126/79
[2020-11-21] MEDS: QUEtiapine FUMARATE 200 MG TABLET PO SCH (21:25)
[2020-11-22 00:53] VITALS: BP 110/76
[2020-11-22] MEDS ORDERED: LORazepam 1 MG TABLET PO PRN (07:00)
[2020-11-22 08:31] VITALS: BP 100/64
[2020-11-22] MEDS: OMEPRAZOLE 10 MG CAPSULE PO SCH (09:24)
[2020-11-22] MEDS: DULoxetine HCL 60 MG CAPSULE PO SCH (09:24)
[2020-11-22] MEDS: NALTREXONE HCL 50 MG TABLET PO SCH (09:24)
[2020-11-22] MEDS: LORazepam 1 MG TABLET PO SCH ×4 (09:24→20:10)
[2020-11-22 16:15] VITALS: BP 107/67
[2020-11-22] MEDS: QUEtiapine FUMARATE 200 MG TABLET PO SCH (20:10)
[2020-11-22] MEDS: ZOLPIDEM TARTRATE 10 MG TABLET PO PRN (20:10)
[2020-11-23 01:02] VITALS: BP 109/70
[2020-11-23] MEDS ORDERED: LORazepam 1 MG TABLET PO PRN (07:00)
[2020-11-23] MEDS: DULoxetine HCL 60 MG CAPSULE PO SCH (08:21)
[2020-11-23] MEDS: NALTREXONE HCL 50 MG TABLET PO SCH (08:22)
[2020-11-23] MEDS: OMEPRAZOLE 10 MG CAPSULE PO SCH (08:22)
[2020-11-23 08:47] VITALS: BP 100/67
[2020-11-23] MEDS: LORazepam 2 MG TABLET PO PRN ×2 (10:03→16:23)
[2020-11-23 16:28] VITALS: BP 111/81
[2020-11-23] MEDS: QUEtiapine FUMARATE 200 MG TABLET PO SCH (20:27)
[2020-11-23] MEDS: ZOLPIDEM TARTRATE 10 MG TABLET PO PRN (20:27)
[2020-11-24 00:40] VITALS: BP 116/71
[2020-11-24 07:22] LABS: COVID AG,FIA SOURCE NASOPHARYNGEAL
[2020-11-24 08:35] VITALS: BP 104/69
[2020-11-24] MEDS: NALTREXONE HCL 50 MG TABLET PO SCH (09:17)
[2020-11-24] MEDS: DULoxetine HCL 60 MG CAPSULE PO SCH (09:17)
[2020-11-24] MEDS: OMEPRAZOLE 10 MG CAPSULE PO SCH (09:17)
[2020-11-24] MEDS: MULTIVITAMINS WITH MINERALS, THERAPEUTIC TABLET PO SCH (09:17)
[2020-11-24] MEDS: LORazepam 2 MG TABLET PO PRN ×2 (09:36→16:17)
[2020-11-24 16:35] VITALS: BP 113/70
[2020-11-24] MEDS: QUEtiapine FUMARATE 200 MG TABLET PO SCH (20:35)
[2020-11-24] MEDS: ZOLPIDEM TARTRATE 10 MG TABLET PO PRN (20:35)
[2020-11-25 03:07] VITALS: BP 96/67
[2020-11-25] MEDS: DULoxetine HCL 60 MG CAPSULE PO SCH (08:48)
[2020-11-25] MEDS: NALTREXONE HCL 50 MG TABLET PO SCH (08:48)
[2020-11-25] MEDS: MULTIVITAMINS WITH MINERALS, THERAPEUTIC TABLET PO SCH (08:48)
[2020-11-25] MEDS: LORazepam 2 MG TABLET PO PRN ×2 (08:48→14:59)
[2020-11-25] MEDS: OMEPRAZOLE 10 MG CAPSULE PO SCH (08:48)
[2020-11-25 08:58] VITALS: BP 109/72
[2020-11-25 16:19] VITALS: BP 111/71
[2020-11-25] MEDS: QUEtiapine FUMARATE 200 MG TABLET PO SCH (20:29)
[2020-11-25] MEDS: ZOLPIDEM TARTRATE 10 MG TABLET PO PRN (20:29)
[2020-11-26 01:11] VITALS: BP 115/68
[2020-11-26] MEDS: LORazepam 2 MG TABLET PO PRN ×3 (08:03→16:23)
[2020-11-26] MEDS: MULTIVITAMINS WITH MINERALS, THERAPEUTIC TABLET PO SCH (08:04)
[2020-11-26] MEDS: OMEPRAZOLE 10 MG CAPSULE PO SCH (08:04)
[2020-11-26] MEDS: NICOTINE POLACRILEX 2 MG LOZENGE PO PRN ×2 (08:04→16:23)
[2020-11-26 08:39] VITALS: BP 107/64
[2020-11-26] MEDS: DULoxetine HCL 60 MG CAPSULE PO SCH (09:10)
[2020-11-26] MEDS: NALTREXONE HCL 50 MG TABLET PO SCH (09:10)
[2020-11-26 16:31] VITALS: BP 100/64
[2020-11-26] MEDS: QUEtiapine FUMARATE 200 MG TABLET PO SCH (20:09)
[2020-11-26] MEDS: ZOLPIDEM TARTRATE 10 MG TABLET PO PRN (20:17)
[2020-11-27 00:25] VITALS: BP 102/67
[2020-11-27] MEDS: LORazepam 2 MG TABLET PO PRN ×3 (07:13→16:06)
[2020-11-27] MEDS: NICOTINE POLACRILEX 2 MG LOZENGE PO PRN ×3 (07:13→18:57)
[2020-11-27 08:30] VITALS: BP 107/64
[2020-11-27] MEDS: DULoxetine HCL 60 MG CAPSULE PO SCH (10:08)
[2020-11-27] MEDS: MULTIVITAMINS WITH MINERALS, THERAPEUTIC TABLET PO SCH (10:08)
[2020-11-27] MEDS: OMEPRAZOLE 10 MG CAPSULE PO SCH (10:09)
[2020-11-27] MEDS: NALTREXONE HCL 50 MG TABLET PO SCH (10:10)
[2020-11-27 16:19] VITALS: BP 103/65
[2020-11-27] MEDS: ZOLPIDEM TARTRATE 10 MG TABLET PO PRN (20:07)
[2020-11-27] MEDS: QUEtiapine FUMARATE 200 MG TABLET PO SCH (20:07)
[2020-11-28 03:35] VITALS: BP 106/67
[2020-11-28] MEDS: LORazepam 2 MG TABLET PO PRN ×2 (07:10→13:25)
[2020-11-28] MEDS: NICOTINE POLACRILEX 2 MG LOZENGE PO PRN ×3 (07:10→21:35)
[2020-11-28 08:23] VITALS: BP 97/66
[2020-11-28] MEDS: MULTIVITAMINS WITH MINERALS, THERAPEUTIC TABLET PO SCH (09:10)
[2020-11-28] MEDS: NALTREXONE HCL 50 MG TABLET PO SCH (09:10)
[2020-11-28] MEDS: DULoxetine HCL 60 MG CAPSULE PO SCH (09:10)
[2020-11-28] MEDS: OMEPRAZOLE 10 MG CAPSULE PO SCH (09:10)
[2020-11-28] MEDS ORDERED: LORazepam 1 MG TABLET PO PRN (13:30)
[2020-11-28 16:27] VITALS: BP 123/78
[2020-11-28] MEDS: ZOLPIDEM TARTRATE 10 MG TABLET PO PRN (20:22)
[2020-11-28] MEDS: QUEtiapine FUMARATE 200 MG TABLET PO SCH (20:22)
[2020-11-29 01:06] VITALS: BP 107/67
[2020-11-29] MEDS: NICOTINE POLACRILEX 2 MG LOZENGE PO PRN (08:07)
[2020-11-29] MEDS: OMEPRAZOLE 10 MG CAPSULE PO SCH (08:07)
[2020-11-29] MEDS: DULoxetine HCL 60 MG CAPSULE PO SCH (08:08)
[2020-11-29] MEDS: NALTREXONE HCL 50 MG TABLET PO SCH (08:08)
[2020-11-29] MEDS: MULTIVITAMINS WITH MINERALS, THERAPEUTIC TABLET PO SCH (08:08)
[2020-11-29 08:10] VITALS: BP 101/67
== END 2020-11-29 10:00 | disposition home or self-care (01) | DRG 885 ==
LOC: EMS 16:27 → B2S 16:40
PROVIDERS: ADMIT Psychiatry & Neurology Child & Adolescent Psychiatry; ATTEND Psychiatry & Neurology Child & Adolescent Psychiatry
DX: F31.4 Bipolar disorder, current episode depressed, severe, without psychotic features (principal); R45.851 Suicidal ideations; E78.5 Hyperlipidemia, unspecified; F10.129 Alcohol abuse with intoxication, unspecified; Y90.9 Presence of alcohol in blood, level not specified; F11.10 Opioid abuse, uncomplicated; F41.9 Anxiety disorder, unspecified; J30.9 Allergic rhinitis, unspecified; J44.9 Chronic obstructive pulmonary disease, unspecified; Z20.822 Contact with and (suspected) exposure to COVID-19; K21.9 Gastro-esophageal reflux disease without esophagitis; Z59.00 Homelessness unspecified; Z87.891 Personal history of nicotine dependence
CPT/HCPCS: 80053; 80061; 85025; 90686; 99285; G0480; Q9967

== ENCOUNTER 2021-02-10 11:22 | Inpatient (IN) | payer MEDICARE, MEDICAID ==
[~2021-02-10] VITALS: Ht 175.3 cm; Wt 83.2 kg
[2021-02-10] MEDS ORDERED: GuaiFENesin/D-METHORPHAN [SUGAR-FREE] 200-20MG/10 ML SYRUP UDCUP PO PRN (14:15)
[2021-02-10] MEDS ORDERED: LOPERAMIDE HCL 2 MG CAPSULE PO PRN (14:15)
[2021-02-10] MEDS ORDERED: CYANOCOBALAMIN 1,000 MCG/ML VIAL IM ONE (14:15)
[2021-02-10 16:07] VITALS: BP 131/89
[2021-02-10 16:34] VITALS: BP 130/80
[2021-02-10 16:36] LABS: GLUCOMETER DEV NAME(LOC) POC.BV
[2021-02-10] MEDS: MULTIVITAMINS WITH MINERALS, THERAPEUTIC TABLET PO SCH (17:09)
[2021-02-10] MEDS: LORazepam 2 MG TABLET PO PRN (17:10)
[2021-02-10] MEDS: THIAMINE 100 MG TABLET PO SCH (17:10)
[2021-02-10 18:07] VITALS: BP 115/78
[2021-02-10 19:09] VITALS: BP 123/77
[2021-02-10 22:30] VITALS: BP 122/78
[2021-02-11] VITALS (9 sets, daily range): BP systolic 114–139; BP diastolic 72–88
[2021-02-11] MEDS: LORazepam 2 MG TABLET PO PRN ×3 (01:29→13:50)
[2021-02-11 07:33] LABS: EOSINOPHILS % (AUTO) 3.5 % (1.0-6.0); HEMATOCRIT 43.4 % (41-53); HEMOGLOBIN 15.8 g/dL (13.5-17.5); LYMPHOCYTES % (AUTO) 16.9 % (22.0-44.0); MEAN CORPUSCULAR HGB CONC 36.4 G/dL (31.0-37.0); MEAN CORPUSCULAR VOLUME 99 fL (80-100); MONOCYTES # (AUTO) 0.5 K/uL (0.1-1.0); MONOCYTES % (AUTO) 9.2 % (2.0-9.0); NEUTROPHILS # (AUTO) 3.9 K/uL (1.8-7.7); NEUTROPHILS % (AUTO) 69.4 % (40.0-70.0); PLATELET COUNT (AUTO) 330 K/uL (150-450); RED BLOOD CELL COUNT(AUTO) 4.39 MIL/uL (4.50-5.90); RED CELL DISTRIBUTION WIDTH 13.1 % (11.5-14.5)
[2021-02-11 07:56] LABS: ALANINE AMINOTRANSFERASE 53 U/L (12-78); ALBUMIN 3.7 g/dL (3.4-5.0); ALKALINE PHOSPHATASE 90 U/L (46-116); ANION GAP 8 mmol/L (8-16); ASPARTATE AMINOTRANSFERASE 38 U/L (15-37); CALCIUM, TOTAL 9.2 mg/dL (8.8-10.5); CARBON DIOXIDE 33 mmol/L (22-29); CHLORIDE 102 mmol/L (98-107); CHOL/HDL RATIO 3.5 (4.2-7.3); CHOLESTEROL 311 mg/dL (131-200); CREATININE 0.94 mg/dL (0.60-1.30); FREE T4 (FREE THYROXINE) 0.77 ng/dL (0.76-1.46); GLOMERULAR FILTR. RATE CALC > 60 mL/min (>60); GLUCOSE,RANDOM 103 mg/dL (70-110); HDL CHOLESTEROL 89 mg/dL (40-60); LDL CHOL (CALC.) 200 mg/dL (0-130); POTASSIUM 4.6 mmol/L (3.5-5.1); SODIUM SERUM 143 mmol/L (136-145); THYROID STIMULATING HORMONE 2.51 uIU/mL (0.36-3.74); TRIGLYCERIDES 111 mg/dL (15-150); UREA NITROGEN, BLOOD 18 mg/dL (7-18)
[2021-02-11] MEDS: FOLIC ACID 1 MG TABLET PO SCH (08:53)
[2021-02-11] MEDS: LORazepam 2 MG TABLET PO SCH ×4 (08:53→20:32)
[2021-02-11] MEDS: THIAMINE 100 MG TABLET PO SCH ×2 (08:53→16:17)
[2021-02-11] MEDS: MULTIVITAMINS WITH MINERALS, THERAPEUTIC TABLET PO SCH (08:53)
[2021-02-11] MEDS: DULoxetine HCL 60 MG CAPSULE PO SCH (12:56)
[2021-02-11] MEDS ORDERED: ALBUTEROL SULFATE HFA 90 MCG/PUFF 8 GM INHALER IH PRN (13:00)
[2021-02-11] MEDS ORDERED: MAGNESIUM HYDROXIDE SUSPENSION 30 ML UDCUP PO PRN (13:00)
[2021-02-11] MEDS ORDERED: GuaiFENesin/D-METHORPHAN [SUGAR-FREE] 200-20MG/10 ML SYRUP UDCUP PO PRN (13:00)
[2021-02-11] MEDS ORDERED: MAG HYDROX/AL HYDROX/SIMETH ES 30 ML SUSPENSION UDCUP PO PRN (13:00)
[2021-02-11] MEDS ORDERED: LOPERAMIDE HCL 2 MG CAPSULE PO PRN (13:00)
[2021-02-11] MEDS ORDERED: IBUPROFEN 400 MG TABLET PO PRN (13:00)
[2021-02-11] MEDS ORDERED: PETROLATUM,WHITE 28 GM JELLY TP PRN (13:00)
[2021-02-11] MEDS ORDERED: CloNIDine HCL 0.1 MG TABLET PO PRN (13:00)
[2021-02-11] MEDS ORDERED: ACETAMINOPHEN 325 MG TABLET PO PRN (13:00)
[2021-02-11] MEDS ORDERED: ONDANSETRON HCL 4 MG TABLET PO PRN (13:00)
[2021-02-11] MEDS ORDERED: DOCUSATE SODIUM 100 MG CAPSULE PO PRN (13:00)
[2021-02-11] MEDS ORDERED: NICOTINE POLACRILEX 2 MG LOZENGE PO PRN (15:00)
[2021-02-11] MEDS: QUEtiapine FUMARATE 200 MG TABLET PO SCH (20:32)
[2021-02-11] MEDS: NICOTINE POLACRILEX 2 MG LOZENGE PO PRN (20:32)
[2021-02-12 00:17] VITALS: BP 128/80
[2021-02-12 00:25] VITALS: BP 135/70
[2021-02-12] MEDS: NICOTINE POLACRILEX 2 MG LOZENGE PO PRN ×3 (08:10→16:48)
[2021-02-12 08:14] VITALS: BP 110/60
[2021-02-12 08:55] VITALS: BP 110/60
[2021-02-12] MEDS: MULTIVITAMINS WITH MINERALS, THERAPEUTIC TABLET PO SCH (08:55)
[2021-02-12] MEDS: THIAMINE 100 MG TABLET PO SCH ×2 (08:55→16:47)
[2021-02-12] MEDS: FOLIC ACID 1 MG TABLET PO SCH (08:55)
[2021-02-12] MEDS: LORazepam 2 MG TABLET PO SCH ×4 (08:55→20:48)
[2021-02-12] MEDS: DULoxetine HCL 60 MG CAPSULE PO SCH (08:55)
[2021-02-12] MEDS: LORazepam 2 MG TABLET PO PRN ×2 (11:05→14:00)
[2021-02-12 16:32] VITALS: BP 117/72
[2021-02-12] MEDS: HydrOXYzine PAMOATE 50 MG CAPSULE PO PRN (20:48)
[2021-02-12] MEDS: QUEtiapine FUMARATE 200 MG TABLET PO SCH (20:48)
[2021-02-13] MEDS: LORazepam 2 MG TABLET PO PRN (01:33)
[2021-02-13 04:01] VITALS: BP 112/68
[2021-02-13] MEDS ORDERED: LORazepam 1 MG TABLET PO PRN (07:00)
[2021-02-13 08:16] VITALS: BP 102/67
[2021-02-13] MEDS: FOLIC ACID 1 MG TABLET PO SCH (08:45)
[2021-02-13] MEDS: DULoxetine HCL 60 MG CAPSULE PO SCH (08:45)
[2021-02-13] MEDS: MULTIVITAMINS WITH MINERALS, THERAPEUTIC TABLET PO SCH (08:45)
[2021-02-13] MEDS: THIAMINE 100 MG TABLET PO SCH ×2 (08:45→16:20)
[2021-02-13] MEDS: LORazepam 1 MG TABLET PO SCH ×4 (08:45→20:26)
[2021-02-13] MEDS: NICOTINE POLACRILEX 2 MG LOZENGE PO PRN ×3 (08:45→20:26)
[2021-02-13 09:47] VITALS: BP 102/67
[2021-02-13 16:26] VITALS: BP 108/68
[2021-02-13] MEDS: HydrOXYzine PAMOATE 50 MG CAPSULE PO PRN (17:33)
[2021-02-13] MEDS: QUEtiapine FUMARATE 200 MG TABLET PO SCH (20:26)
[2021-02-14 02:53] VITALS: BP 110/99
[2021-02-14 05:31] VITALS: BP 111/79
[2021-02-14] MEDS: NICOTINE POLACRILEX 2 MG LOZENGE PO PRN (05:43)
[2021-02-14] MEDS ORDERED: LORazepam 1 MG TABLET PO PRN (07:00)
[2021-02-14] MEDS: MULTIVITAMINS WITH MINERALS, THERAPEUTIC TABLET PO SCH (08:17)
[2021-02-14] MEDS: FOLIC ACID 1 MG TABLET PO SCH (08:17)
[2021-02-14] MEDS: THIAMINE 100 MG TABLET PO SCH (08:17)
[2021-02-14] MEDS: DULoxetine HCL 60 MG CAPSULE PO SCH (08:17)
[2021-02-14 08:26] VITALS: BP 108/68
[2021-02-14] MEDS ORDERED: OMEPRAZOLE 20 MG CAPSULE PO SCH (09:00)
[2021-02-14] MEDS ORDERED: DULO60CA45 PO (09:29)
[2021-02-14] MEDS ORDERED: QUET200T30 PO (09:29)
== END 2021-02-14 11:45 | disposition home or self-care (01) | DRG 885 ==
LOC: B2S 14:33 → B3A 15:47
PROVIDERS: ADMIT Psychiatry & Neurology Psychiatry; ATTEND Psychiatry & Neurology Psychiatry
DX: F25.0 Schizoaffective disorder, bipolar type (principal); R45.851 Suicidal ideations; Z20.822 Contact with and (suspected) exposure to COVID-19; E78.5 Hyperlipidemia, unspecified; J44.9 Chronic obstructive pulmonary disease, unspecified; F10.20 Alcohol dependence, uncomplicated; K21.9 Gastro-esophageal reflux disease without esophagitis; Z59.00 Homelessness unspecified; Z79.899 Other long term (current) drug therapy; Z91.51 Personal history of suicidal behavior
CPT/HCPCS: 80053; 80061; 84439; 84443; 85025; G0480; J3420; Q9967

== ENCOUNTER 2021-07-26 11:33 | Inpatient (IN) | payer MEDICARE, MEDICAID ==
[~2021-07-26] VITALS: Ht 175.3 cm; Wt 81.4 kg
[~2021-07-26 11:33] MED LIST changes: +DULO60CA45 PO; -DULO60CA98 PO; -NALT50TA6 PO; -OMEP10 PO; -QUET200T PO; +QUET200T30 PO
[2021-07-26 12:12] LABS: GLUCOMETER DEV NAME(LOC) POC.BV
[2021-07-26 22:49] VITALS: BP 112/84
[2021-07-26] MEDS: LORazepam 2 MG TABLET PO PRN (22:50)
[2021-07-26 23:06] VITALS: BP 112/84
[2021-07-27] VITALS (7 sets, daily range): BP systolic 108–129; BP diastolic 66–82
[2021-07-27] MEDS: LORazepam 2 MG TABLET PO PRN ×3 (03:12→19:39)
[2021-07-27] MEDS ORDERED: ALBUTEROL SULFATE HFA 90 MCG/PUFF 8 GM INHALER IH PRN (07:00)
[2021-07-27] MEDS ORDERED: BACITRACIN 28 GM OINTMENT TP PRN (07:00)
[2021-07-27] MEDS ORDERED: ONDANSETRON HCL 4 MG TABLET PO PRN (07:00)
[2021-07-27] MEDS ORDERED: PETROLATUM,WHITE 28 GM JELLY TP PRN (07:00)
[2021-07-27] MEDS ORDERED: BENZOCAINE/MENTHOL LOZENGE PO PRN (07:00)
[2021-07-27] MEDS ORDERED: DOCUSATE SODIUM 100 MG CAPSULE PO PRN (07:00)
[2021-07-27] MEDS ORDERED: CloNIDine HCL 0.1 MG TABLET PO PRN (07:00)
[2021-07-27] MEDS ORDERED: ACETAMINOPHEN 325 MG TABLET PO PRN (07:00)
[2021-07-27] MEDS ORDERED: IBUPROFEN 600 MG TABLET PO PRN (07:00)
[2021-07-27] MEDS ORDERED: MAGNESIUM HYDROXIDE SUSPENSION 30 ML UDCUP PO PRN (07:00)
[2021-07-27] MEDS ORDERED: LOPERAMIDE HCL 2 MG CAPSULE PO PRN (07:00)
[2021-07-27] MEDS ORDERED: OMEPRAZOLE 20 MG CAPSULE PO PRN (07:00)
[2021-07-27 07:25] LABS: BASOPHILS % (AUTO) 0.5 % (0.0-2.0); EOSINOPHILS % (AUTO) 5.4 % (1.0-6.0); HEMOGLOBIN 14.3 g/dL (13.5-17.5); LYMPHOCYTES % (AUTO) 29.8 % (22.0-44.0); MEAN CORPUSCULAR HEMOGLOBIN 33.2 pg (26.0-34.0); MEAN CORPUSCULAR VOLUME 98 fL (80-100); MONOCYTES # (AUTO) 0.5 K/uL (0.1-1.0); MONOCYTES % (AUTO) 16.5 % (2.0-9.0); NEUTROPHILS # (AUTO) 1.6 K/uL (1.8-7.7); NEUTROPHILS % (AUTO) 47.8 % (40.0-70.0); PLATELET COUNT (AUTO) 168 K/uL (150-450); RED BLOOD CELL COUNT(AUTO) 4.29 MIL/uL (4.50-5.90); RED CELL DISTRIBUTION WIDTH 13.3 % (11.5-14.5)
[2021-07-27 07:35] LABS: HEMOGLOBIN A1C 5.3 % (3.8-5.6)
[2021-07-27 07:48] LABS: ALANINE AMINOTRANSFERASE 61 U/L (12-78); ALBUMIN 2.8 g/dL (3.4-5.0); ALKALINE PHOSPHATASE 121 U/L (46-116); ANION GAP 7 mmol/L (8-16); ASPARTATE AMINOTRANSFERASE 51 U/L (15-37); BILIRUBIN,TOTAL 0.6 mg/dL (0.1-1.0); CALCIUM, TOTAL 8.7 mg/dL (8.8-10.5); CARBON DIOXIDE 29 mmol/L (22-29); CHLORIDE 103 mmol/L (98-107); CHOL/HDL RATIO 2.2 (4.2-7.3); CHOLESTEROL 177 mg/dL (131-200); CREATININE 0.77 mg/dL (0.60-1.30); FREE T4 (FREE THYROXINE) 0.87 ng/dL (0.76-1.46); GLOMERULAR FILTR. RATE CALC > 60 mL/min (>60); GLUCOSE,RANDOM 117 mg/dL (70-110); HDL CHOLESTEROL 81 mg/dL (40-60); LDL CHOL (CALC.) 85 mg/dL (0-130); POTASSIUM 3.7 mmol/L (3.5-5.1); SODIUM SERUM 139 mmol/L (136-145); TOTAL PROTEIN, SERUM 6.1 g/dL (6.4-8.2); TRIGLYCERIDES 57 mg/dL (15-150); UREA NITROGEN, BLOOD 9 mg/dL (7-18)
[2021-07-27] MEDS: NICOTINE POLACRILEX 2 MG LOZENGE PO PRN (15:38)
[2021-07-27] MEDS ORDERED: QUEtiapine FUMARATE 200 MG TABLET PO SCH (21:00)
[2021-07-28] MEDS: NICOTINE POLACRILEX 2 MG LOZENGE PO PRN ×3 (06:07→20:18)
[2021-07-28] MEDS: LORazepam 2 MG TABLET PO PRN ×3 (06:07→18:39)
[2021-07-28 06:11] VITALS: BP 112/80
[2021-07-28 06:14] VITALS: BP 117/80
[2021-07-28 08:33] VITALS: BP 118/80
[2021-07-28] MEDS: DULoxetine HCL 60 MG CAPSULE PO SCH (08:45)
[2021-07-28 16:23] VITALS: BP 119/77
[2021-07-28 17:19] VITALS: BP 119/77
[2021-07-28] MEDS: QUEtiapine FUMARATE 200 MG TABLET PO SCH (20:15)
[2021-07-29 04:22] VITALS: BP 120/85
[2021-07-29] MEDS: DULoxetine HCL 60 MG CAPSULE PO SCH (08:37)
[2021-07-29 08:42] VITALS: BP 110/73
[2021-07-29] MEDS: LORazepam 2 MG TABLET PO PRN ×3 (08:46→19:24)
[2021-07-29] MEDS: NICOTINE POLACRILEX 2 MG LOZENGE PO PRN ×2 (14:36→20:37)
[2021-07-29 16:31] VITALS: BP 130/83
[2021-07-29 16:55] VITALS: BP 130/83
[2021-07-29] MEDS: QUEtiapine FUMARATE 200 MG TABLET PO SCH (20:17)
[2021-07-30 01:39] VITALS: BP 122/78
[2021-07-30 05:49] VITALS: BP 122/78
[2021-07-30 08:19] VITALS: BP 109/74
[2021-07-30] MEDS: DULoxetine HCL 60 MG CAPSULE PO SCH (09:17)
[2021-07-30] MEDS: LORazepam 2 MG TABLET PO PRN ×2 (09:28→15:39)
[2021-07-30] MEDS: NICOTINE POLACRILEX 2 MG LOZENGE PO PRN ×2 (11:47→17:58)
[2021-07-30 16:17] VITALS: BP 123/74
[2021-07-30 16:59] VITALS: BP 123/74
[2021-07-30] MEDS: QUEtiapine FUMARATE 200 MG TABLET PO SCH (20:11)
[2021-07-31] VITALS (7 sets, daily range): BP systolic 101–125; BP diastolic 66–78
[2021-07-31] MEDS: LORazepam 2 MG TABLET PO PRN ×4 (06:45→20:31)
[2021-07-31] MEDS: NICOTINE POLACRILEX 2 MG LOZENGE PO PRN ×3 (07:14→19:21)
[2021-07-31] MEDS: DULoxetine HCL 60 MG CAPSULE PO SCH (09:14)
[2021-07-31 14:21] LABS: GLUCOMETER DEV NAME(LOC) POC.BV
[2021-07-31] MEDS: QUEtiapine FUMARATE 200 MG TABLET PO SCH (20:26)
[2021-08-01 01:10] VITALS: BP 116/75
[2021-08-01 02:57] VITALS: BP 116/75
[2021-08-01 08:47] VITALS: BP 109/69
[2021-08-01] MEDS: DULoxetine HCL 60 MG CAPSULE PO SCH (08:50)
[2021-08-01] MEDS: LORazepam 2 MG TABLET PO PRN ×3 (09:01→17:52)
[2021-08-01] MEDS: NICOTINE POLACRILEX 2 MG LOZENGE PO PRN ×2 (09:03→15:50)
[2021-08-01 12:50] VITALS: BP 121/72
[2021-08-01 17:49] VITALS: BP 122/72
[2021-08-01 18:51] LABS: GLUCOMETER DEV NAME(LOC) POC.BV
[2021-08-01] MEDS: MAG HYDROX/AL HYDROX/SIMETH ES 30 ML SUSPENSION UDCUP PO PRN (19:45)
[2021-08-01] MEDS: QUEtiapine FUMARATE 200 MG TABLET PO SCH (20:36)
[2021-08-01 23:15] VITALS: BP 125/75
[2021-08-01] MEDS: ZOLPIDEM TARTRATE 10 MG TABLET PO PRN (23:23)
[2021-08-02 06:25] VITALS: BP 124/60
[2021-08-02 06:28] VITALS: BP 124/60
[2021-08-02] MEDS: DULoxetine HCL 60 MG CAPSULE PO SCH (08:27)
[2021-08-02] MEDS: LORazepam 2 MG TABLET PO PRN ×3 (08:27→17:33)
[2021-08-02 08:52] VITALS: BP 109/56
[2021-08-02] MEDS: NICOTINE POLACRILEX 2 MG LOZENGE PO PRN ×2 (09:07→15:27)
[2021-08-02 16:21] VITALS: BP 132/75
[2021-08-02] MEDS: QUEtiapine FUMARATE 200 MG TABLET PO SCH (20:41)
[2021-08-03 02:17] VITALS: BP 106/65
[2021-08-03] MEDS: DULoxetine HCL 60 MG CAPSULE PO SCH (08:29)
[2021-08-03] MEDS: LORazepam 2 MG TABLET PO PRN ×2 (08:29→16:41)
[2021-08-03] MEDS: NICOTINE POLACRILEX 2 MG LOZENGE PO PRN ×2 (08:41→16:59)
[2021-08-03 08:48] VITALS: BP 113/61
[2021-08-03] MEDS: HALOPERIDOL 5 MG TABLET PO PRN (10:45)
[2021-08-03 16:20] VITALS: BP 125/83
[2021-08-03] MEDS: QUEtiapine FUMARATE 200 MG TABLET PO SCH (20:19)
[2021-08-04 00:49] VITALS: BP 102/62
[2021-08-04 05:04] VITALS: BP 104/62
[2021-08-04] MEDS: LORazepam 2 MG TABLET PO PRN ×3 (05:07→17:09)
[2021-08-04] MEDS: NICOTINE POLACRILEX 2 MG LOZENGE PO PRN (05:08)
[2021-08-04 08:26] VITALS: BP 110/68
[2021-08-04] MEDS: HALOPERIDOL 5 MG TABLET PO PRN (08:37)
[2021-08-04] MEDS: DULoxetine HCL 60 MG CAPSULE PO SCH (08:37)
[2021-08-04] MEDS: NICOTINE 21 MG/24 HOUR PATCH TD SCH (11:25)
[2021-08-04 16:09] VITALS: BP 114/74
[2021-08-04] MEDS: QUEtiapine FUMARATE 200 MG TABLET PO SCH (20:18)
[2021-08-05] MEDS: ZOLPIDEM TARTRATE 10 MG TABLET PO PRN ×2 (00:09→21:01)
[2021-08-05 08:09] VITALS: BP 118/79
[2021-08-05] MEDS: DULoxetine HCL 60 MG CAPSULE PO SCH (09:42)
[2021-08-05] MEDS: NICOTINE 21 MG/24 HOUR PATCH TD SCH (09:43)
[2021-08-05] MEDS: LORazepam 2 MG TABLET PO PRN ×3 (10:46→20:19)
[2021-08-05] MEDS: MAG HYDROX/AL HYDROX/SIMETH ES 30 ML SUSPENSION UDCUP PO PRN (13:50)
[2021-08-05 16:09] VITALS: BP 102/67
[2021-08-05] MEDS: HALOPERIDOL 5 MG TABLET PO PRN (17:35)
[2021-08-05 20:16] VITALS: BP 115/77
[2021-08-05] MEDS: QUEtiapine FUMARATE 200 MG TABLET PO SCH (21:01)
[2021-08-06 00:30] VITALS: BP 110/72
[2021-08-06 08:23] VITALS: BP 106/64
[2021-08-06] MEDS: DULoxetine HCL 60 MG CAPSULE PO SCH (09:03)
[2021-08-06] MEDS: NICOTINE 21 MG/24 HOUR PATCH TD SCH (09:03)
[2021-08-06] MEDS ORDERED: QUET200T PO (11:12)
[2021-08-06] MEDS: MAG HYDROX/AL HYDROX/SIMETH ES 30 ML SUSPENSION UDCUP PO PRN (11:53)
== END 2021-08-06 12:20 | disposition home or self-care (01) | DRG 885 ==
LOC: B2S 21:08
PROVIDERS: ADMIT Psychiatry & Neurology Psychiatry; ATTEND Psychiatry & Neurology Psychiatry
DX: F20.9 Schizophrenia, unspecified (principal); Z20.822 Contact with and (suspected) exposure to COVID-19; E78.5 Hyperlipidemia, unspecified; F41.9 Anxiety disorder, unspecified; G47.00 Insomnia, unspecified; I10 Essential (primary) hypertension; J44.9 Chronic obstructive pulmonary disease, unspecified; K21.9 Gastro-esophageal reflux disease without esophagitis; Z59.00 Homelessness unspecified; Z91.19 Patient's noncompliance with other medical treatment and regimen
CPT/HCPCS: 80053; 80061; 83036; 84436; 84439; 85025; 87081; Q9967

== ENCOUNTER 2021-11-08 12:08 | Emergency (ER) | payer MEDICARE, MEDICAID ==
[~2021-11-08] VITALS: Ht 177.8 cm; Wt 81.3 kg
[~2021-11-08 12:08] MED LIST changes: +QUET200T PO; -QUET200T30 PO
[2021-11-08] MEDS ORDERED: SODIUM CHLORIDE 0.9% 1,000 ML IV ONE (13:00)
[2021-11-08 13:07] LABS: BASOPHILS % (AUTO) 0.5 % (0.0-2.0); HEMATOCRIT 43.4 % (41-53); HEMOGLOBIN 14.9 g/dL (13.5-17.5); LYMPHOCYTES # (AUTO) 1.1 K/uL (1.0-4.8); LYMPHOCYTES % (AUTO) 16.5 % (22.0-44.0); MEAN CORPUSCULAR HEMOGLOBIN 34.2 pg (26.0-34.0); MEAN CORPUSCULAR HGB CONC 34.4 G/dL (31.0-37.0); MEAN CORPUSCULAR VOLUME 100 fL (80-100); MONOCYTES # (AUTO) 0.8 K/uL (0.1-1.0); MONOCYTES % (AUTO) 12.6 % (2.0-9.0); NEUTROPHILS # (AUTO) 4.5 K/uL (1.8-7.7); NEUTROPHILS % (AUTO) 67.4 % (40.0-70.0); PLATELET COUNT (AUTO) 218 K/uL (150-450); RED BLOOD CELL COUNT(AUTO) 4.36 MIL/uL (4.50-5.90)
[2021-11-08 13:32] LABS: ANION GAP 8 mmol/L (8-16); CALCIUM, TOTAL 8.8 mg/dL (8.8-10.5); CARBON DIOXIDE 27 mmol/L (22-29); CHLORIDE 102 mmol/L (98-107); CREATININE 0.74 mg/dL (0.60-1.30); GLUCOSE,RANDOM 97 mg/dL (70-110); POTASSIUM 4.2 mmol/L (3.5-5.1); SODIUM SERUM 137 mmol/L (136-145); UREA NITROGEN, BLOOD 22 mg/dL (7-18)
[2021-11-08 13:34] LABS: GLOMERULAR FILTR. RATE CALC > 60 mL/min (>60)
[2021-11-08 13:38] LABS: ALANINE AMINOTRANSFERASE 29 U/L (12-78); ALBUMIN 3.7 g/dL (3.4-5.0); ALKALINE PHOSPHATASE 107 U/L (46-116); ASPARTATE AMINOTRANSFERASE 33 U/L (15-37); BILIRUBIN,TOTAL 0.2 mg/dL (0.1-1.0); TOTAL PROTEIN, SERUM 7.6 g/dL (6.4-8.2)
[2021-11-08] MEDS ORDERED: LORazepam 1 MG TABLET PO ONE (14:30)
[2021-11-08 16:39] LABS: AMPHET/METH SCREEN,URINE NEGATIVE (NEGATIVE); BARBITURATE SCREEN, URINE NEGATIVE (NEGATIVE); BENZODIAZEPINES SCREEN,URINE NEGATIVE (NEGATIVE); CANNABINOID SCREEN,URINE POSITIVE (NEGATIVE); COCAINE SCREEN,URINE POSITIVE (NEGATIVE); METHADONE SCREEN, URINE NEGATIVE (NEGATIVE); OPIATE SCREEN,URINE NEGATIVE (NEGATIVE)
[2021-11-08 16:41] LABS: PHENCYCLIDINE SCREEN,URINE NEGATIVE (NEGATIVE)
[2021-11-08 17:25] VITALS: BP 130/68
[2021-11-08] MEDS ORDERED: KETOROLAC TROMETHAMINE 30 MG/ML VIAL IVP ONE (17:45)
== END 2021-11-08 20:15 | disposition home or self-care (01) ==
LOC: EMS 12:24
DX: T40.5X1A Poisoning by cocaine, accidental (unintentional), initial encounter (principal); T40.711A Poisoning by cannabis, accidental (unintentional), initial encounter; F10.20 Alcohol dependence, uncomplicated; F32.A Depression, unspecified; F17.210 Nicotine dependence, cigarettes, uncomplicated; F11.90 Opioid use, unspecified, uncomplicated; F15.90 Other stimulant use, unspecified, uncomplicated; Y92.89 Other specified places as the place of occurrence of the external cause
CPT/HCPCS: 99285; 96374; 71045; 96361; 80053; 85025; 36415; 80307; G0480; J1885; J7030

== ENCOUNTER 2022-01-19 11:57 | Inpatient (IN) | payer MEDICARE, MEDICAID ==
[~2022-01-19] VITALS: Ht 175.3 cm; Wt 75.5 kg
[2022-01-19] MEDS ORDERED: HALOPERIDOL 5 MG TABLET PO PRN (14:45)
[2022-01-19] MEDS ORDERED: ZOLPIDEM TARTRATE 10 MG TABLET PO PRN (14:45)
[2022-01-19 15:01] LABS: GLUCOMETER DEV NAME(LOC) POC.BV
[2022-01-19] MEDS ORDERED: ACETAMINOPHEN 325 MG TABLET PO PRN (15:30)
[2022-01-19] MEDS ORDERED: GuaiFENesin/D-METHORPHAN [SUGAR-FREE] 200-20MG/10 ML SYRUP UDCUP PO PRN (15:30)
[2022-01-19] MEDS ORDERED: PETROLATUM,WHITE 28 GM JELLY TP PRN (15:30)
[2022-01-19] MEDS ORDERED: ONDANSETRON HCL 4 MG TABLET PO PRN (15:30)
[2022-01-19] MEDS ORDERED: MAG HYDROX/AL HYDROX/SIMETH ES 30 ML SUSPENSION UDCUP PO PRN (15:30)
[2022-01-19] MEDS ORDERED: ALBUTEROL SULFATE HFA 90 MCG/PUFF 8 GM INHALER IH PRN (15:30)
[2022-01-19] MEDS ORDERED: NICOTINE 14 MG/24 HOUR PATCH TD PRN (15:30)
[2022-01-19] MEDS ORDERED: IBUPROFEN 400 MG TABLET PO PRN (15:30)
[2022-01-19] MEDS ORDERED: MAGNESIUM HYDROXIDE SUSPENSION 30 ML UDCUP PO PRN (15:30)
[2022-01-19] MEDS ORDERED: CloNIDine HCL 0.1 MG TABLET PO PRN (15:30)
[2022-01-19] MEDS ORDERED: DOCUSATE SODIUM 100 MG CAPSULE PO PRN (15:30)
[2022-01-19] MEDS ORDERED: LOPERAMIDE HCL 2 MG CAPSULE PO PRN (15:30)
[2022-01-19] MEDS ORDERED: INFLUENZA VIRUS VACCINE QVS 2022-23 (6MO+)/PF 60 MCG/0.5 ML SYRINGE IM. ONE (15:45)
[2022-01-19 16:00] VITALS: BP 113/74
[2022-01-19 16:23] VITALS: BP 113/74
[2022-01-19] MEDS ORDERED: ChlordiazePOXIDE HCL 25 MG CAPSULE PO PRN (16:45)
[2022-01-19 17:39] VITALS: BP 113/74
[2022-01-19 18:30] VITALS: BP 120/80
[2022-01-19 19:13] VITALS: BP 126/85
[2022-01-19] MEDS: LORazepam 2 MG TABLET PO PRN (20:42)
[2022-01-19 23:00] VITALS: BP 112/60
[2022-01-20 03:00] VITALS: BP 109/69
[2022-01-20] MEDS: LORazepam 2 MG TABLET PO PRN (06:59)
[2022-01-20] MEDS ORDERED: ChlordiazePOXIDE HCL 25 MG CAPSULE PO PRN (07:00)
[2022-01-20 07:01] VITALS: BP 128/73
[2022-01-20 07:24] LABS: HEMOGLOBIN A1C 5.3 % (3.8-5.6)
[2022-01-20 07:34] LABS: BASOPHILS % (AUTO) 0.3 % (0.0-2.0); HEMATOCRIT 42.4 % (41-53); LYMPHOCYTES # (AUTO) 0.9 K/uL (1.0-4.8); LYMPHOCYTES % (AUTO) 19.8 % (22.0-44.0); MEAN CORPUSCULAR HEMOGLOBIN 35.4 pg (26.0-34.0); MEAN CORPUSCULAR HGB CONC 35.3 G/dL (31.0-37.0); MEAN CORPUSCULAR VOLUME 100 fL (80-100); MONOCYTES # (AUTO) 0.6 K/uL (0.1-1.0); MONOCYTES % (AUTO) 12.9 % (2.0-9.0); NEUTROPHILS # (AUTO) 2.9 K/uL (1.8-7.7); PLATELET COUNT (AUTO) 138 K/uL (150-450); RED BLOOD CELL COUNT(AUTO) 4.23 MIL/uL (4.50-5.90); RED CELL DISTRIBUTION WIDTH 12.4 % (11.5-14.5)
[2022-01-20 07:44] LABS: ALANINE AMINOTRANSFERASE 62 U/L (12-78); ALBUMIN 3.1 g/dL (3.4-5.0); ALKALINE PHOSPHATASE 124 U/L (46-116); ANION GAP 4 mmol/L (8-16); ASPARTATE AMINOTRANSFERASE 70 U/L (15-37); BILIRUBIN,TOTAL 0.5 mg/dL (0.1-1.0); CALCIUM, TOTAL 9.4 mg/dL (8.8-10.5); CARBON DIOXIDE 29 mmol/L (22-29); CHLORIDE 100 mmol/L (98-107); CHOL/HDL RATIO 2.3 (4.2-7.3); CHOLESTEROL 232 mg/dL (131-200); CREATININE 0.77 mg/dL (0.60-1.30); FREE T4 (FREE THYROXINE) 0.71 ng/dL (0.76-1.46); GLUCOSE,RANDOM 101 mg/dL (70-110); HDL CHOLESTEROL 100 mg/dL (40-60); LDL CHOL (CALC.) 116 mg/dL (0-130); POTASSIUM 3.9 mmol/L (3.5-5.1); SODIUM SERUM 133 mmol/L (136-145); THYROID STIMULATING HORMONE 1.96 uIU/mL (0.36-3.74); TOTAL PROTEIN, SERUM 6.9 g/dL (6.4-8.2); TRIGLYCERIDES 78 mg/dL (15-150); UREA NITROGEN, BLOOD 16 mg/dL (7-18)
[2022-01-20 07:48] LABS: GLOMERULAR FILTR. RATE CALC > 60 mL/min (>60)
[2022-01-20] MEDS: ChlordiazePOXIDE HCL 25 MG CAPSULE PO SCH ×4 (09:17→20:42)
[2022-01-20 16:24] VITALS: BP 116/74
[2022-01-20 17:54] VITALS: BP 125/76
[2022-01-20] MEDS: SERTRALINE HCL 50 MG TABLET PO SCH (19:58)
[2022-01-20] MEDS: BusPIRone HCL 10 MG TABLET PO SCH (19:58)
[2022-01-20 20:20] VITALS: BP 115/79
[2022-01-20] MEDS: TraZODone HCL 50 MG TABLET PO SCH (20:42)
[2022-01-21 01:02] VITALS: BP 110/84
[2022-01-21 04:19] VITALS: BP 125/80
[2022-01-21 08:07] LABS: APPEARANCE,URINE CLEAR (CLEAR); BILIRUBIN,URINE NEGATIVE (NEGATIVE); GLUCOSE, URINE (UA) NEGATIVE (NEGATIVE); KETONES,URINE NEGATIVE (NEGATIVE); LEUKOCYTE ESTERASE ,URINE NEGATIVE (NEGATIVE); NITRATE,URINE NEGATIVE (NEGATIVE); OCCULT BLOOD,URINE NEGATIVE (NEGATIVE); PROTEIN,URINE NEGATIVE (NEGATIVE); SPECIFIC GRAVITIY, URINE 1.019 (1.003-1.030); UROBILINOGEN,URINE <=1.0 mg/dL (<=1.0)
[2022-01-21 08:15] LABS: AMPHET/METH SCREEN,URINE NEGATIVE (NEGATIVE); BARBITURATE SCREEN, URINE NEGATIVE (NEGATIVE); BENZODIAZEPINES SCREEN,URINE NEGATIVE (NEGATIVE); CANNABINOID SCREEN,URINE NEGATIVE (NEGATIVE); COCAINE SCREEN,URINE NEGATIVE (NEGATIVE); METHADONE SCREEN, URINE NEGATIVE (NEGATIVE); OPIATE SCREEN,URINE NEGATIVE (NEGATIVE)
[2022-01-21 08:16] LABS: PHENCYCLIDINE SCREEN,URINE NEGATIVE (NEGATIVE)
[2022-01-21 08:48] VITALS: BP 120/81
[2022-01-21] MEDS: SERTRALINE HCL 50 MG TABLET PO SCH (09:16)
[2022-01-21] MEDS: ChlordiazePOXIDE HCL 25 MG CAPSULE PO SCH ×4 (09:16→20:58)
[2022-01-21] MEDS: BusPIRone HCL 10 MG TABLET PO SCH ×2 (09:16→16:27)
[2022-01-21 16:25] VITALS: BP 122/82
[2022-01-21 20:19] VITALS: BP 122/80
[2022-01-21] MEDS: TraZODone HCL 50 MG TABLET PO SCH (20:57)
[2022-01-22 06:36] VITALS: BP 128/77
[2022-01-22] MEDS: LORazepam 2 MG TABLET PO PRN ×2 (06:38→12:38)
[2022-01-22] MEDS ORDERED: ChlordiazePOXIDE HCL 10 MG CAPSULE PO PRN (07:00)
[2022-01-22 08:05] VITALS: BP 118/78
[2022-01-22] MEDS: SERTRALINE HCL 50 MG TABLET PO SCH (08:41)
[2022-01-22] MEDS: BusPIRone HCL 10 MG TABLET PO SCH ×2 (08:41→16:38)
[2022-01-22] MEDS: ChlordiazePOXIDE HCL 10 MG CAPSULE PO SCH ×4 (08:41→20:35)
[2022-01-22 20:34] VITALS: BP 120/76
[2022-01-22] MEDS: TraZODone HCL 50 MG TABLET PO SCH (20:35)
[2022-01-23 08:25] VITALS: BP 119/68
[2022-01-23] MEDS: SERTRALINE HCL 50 MG TABLET PO SCH (08:58)
[2022-01-23] MEDS: BusPIRone HCL 10 MG TABLET PO SCH ×2 (08:58→16:20)
[2022-01-23] MEDS: ChlordiazePOXIDE HCL 10 MG CAPSULE PO PRN ×2 (09:03→16:35)
[2022-01-23] MEDS: LORazepam 2 MG TABLET PO PRN ×2 (11:16→19:19)
[2022-01-23] MEDS: NICOTINE POLACRILEX 2 MG LOZENGE PO PRN ×2 (13:03→19:19)
[2022-01-23 20:19] VITALS: BP 114/73
[2022-01-23] MEDS: TraZODone HCL 50 MG TABLET PO SCH (20:46)
[2022-01-24 08:11] LABS: GLUCOMETER DEV NAME(LOC) POC.BV
[2022-01-24] MEDS: BusPIRone HCL 10 MG TABLET PO SCH (08:21)
[2022-01-24] MEDS: SERTRALINE HCL 50 MG TABLET PO SCH (08:21)
[2022-01-24] MEDS: NICOTINE POLACRILEX 2 MG LOZENGE PO PRN (08:29)
[2022-01-24 08:57] VITALS: BP 141/77
[2022-01-24] MEDS ORDERED: BUSP10TA23 PO (11:27)
[2022-01-24] MEDS ORDERED: TRAZ-252 PO (11:27)
[2022-01-24] MEDS ORDERED: SERT-158 PO (11:28)
[2022-01-25] MEDS ORDERED: TRAZ-252 PO (09:39)
[2022-01-25] MEDS ORDERED: SERT-439 PO (09:39)
[2022-01-25] MEDS ORDERED: BUSP10TA23 PO (09:39)
== END 2022-01-24 12:35 | disposition home or self-care (01) | DRG 885 ==
LOC: B2S 14:31
PROVIDERS: ADMIT Psychiatry & Neurology Child & Adolescent Psychiatry; ATTEND Psychiatry & Neurology Child & Adolescent Psychiatry
DX: F31.4 Bipolar disorder, current episode depressed, severe, without psychotic features (principal); E78.5 Hyperlipidemia, unspecified; Z20.822 Contact with and (suspected) exposure to COVID-19; F41.1 Generalized anxiety disorder; J44.9 Chronic obstructive pulmonary disease, unspecified; K21.9 Gastro-esophageal reflux disease without esophagitis; F10.20 Alcohol dependence, uncomplicated; F20.9 Schizophrenia, unspecified; Z63.8 Other specified problems related to primary support group; Z79.899 Other long term (current) drug therapy
CPT/HCPCS: 80053; 80061; 80307; 81003; 83036; 84439; 84443; 85025; 90686; Q9967

== ENCOUNTER 2022-07-18 16:04 | Emergency (ER) | payer MEDICARE, OTHER ==
[~2022-07-18] VITALS: Ht 175.3 cm; Wt 75.0 kg
[~2022-07-18 16:04] MED LIST changes: +BUSP10TA23 PO; -DULO60CA45 PO; -QUET200T PO; +SERT-158 PO; +SERT-439 PO; +TRAZ-252 PO
[2022-07-18 16:46] LABS: BASOPHILS % (AUTO) 0.9 % (0.0-2.0); EOSINOPHILS % (AUTO) 3.1 % (1.0-6.0); HEMATOCRIT 46.2 % (41-53); HEMOGLOBIN 16.1 g/dL (13.5-17.5); LYMPHOCYTES # (AUTO) 1.6 K/uL (1.0-4.8); LYMPHOCYTES % (AUTO) 33.5 % (22.0-44.0); MEAN CORPUSCULAR HGB CONC 34.9 G/dL (31.0-37.0); MEAN CORPUSCULAR VOLUME 100 fL (80-100); MONOCYTES # (AUTO) 0.6 K/uL (0.1-1.0); MONOCYTES % (AUTO) 11.8 % (2.0-9.0); NEUTROPHILS # (AUTO) 2.4 K/uL (1.8-7.7); NEUTROPHILS % (AUTO) 50.7 % (40.0-70.0); PLATELET COUNT (AUTO) 201 K/uL (150-450); RED CELL DISTRIBUTION WIDTH 11.9 % (11.5-14.5)
[2022-07-18 16:59] LABS: ANION GAP 9 mmol/L (8-16); CALCIUM, TOTAL 9.3 mg/dL (8.8-10.5); CARBON DIOXIDE 30 mmol/L (22-29); CHLORIDE 101 mmol/L (98-107); CREATININE 0.78 mg/dL (0.60-1.30); GLOMERULAR FILTR. RATE CALC > 60 mL/min (>60); GLUCOSE,RANDOM 110 mg/dL (70-110); POTASSIUM 3.6 mmol/L (3.5-5.1); SODIUM SERUM 140 mmol/L (136-145)
[2022-07-18 17:05] LABS: ALANINE AMINOTRANSFERASE 118 U/L (12-78); ALBUMIN 3.6 g/dL (3.4-5.0); ALKALINE PHOSPHATASE 147 U/L (46-116); ASPARTATE AMINOTRANSFERASE 148 U/L (15-37); BILIRUBIN,TOTAL 0.8 mg/dL (0.1-1.0); TOTAL PROTEIN, SERUM 7.9 g/dL (6.4-8.2)
[2022-07-18 17:22] LABS: COVID AG,FIA SOURCE NASAL SWAB
[2022-07-18 17:48] LABS: AMPHET/METH SCREEN,URINE POSITIVE (NEGATIVE); BARBITURATE SCREEN, URINE NEGATIVE (NEGATIVE); BENZODIAZEPINES SCREEN,URINE NEGATIVE (NEGATIVE); CANNABINOID SCREEN,URINE NEGATIVE (NEGATIVE); COCAINE SCREEN,URINE NEGATIVE (NEGATIVE); METHADONE SCREEN, URINE NEGATIVE (NEGATIVE); OPIATE SCREEN,URINE NEGATIVE (NEGATIVE); PHENCYCLIDINE SCREEN,URINE NEGATIVE (NEGATIVE)
[2022-07-18] MEDS ORDERED: ChlordiazePOXIDE HCL 25 MG CAPSULE PO ONE (18:15)
[2022-07-18 19:11] VITALS: BP 127/83
== END 2022-07-18 19:46 | disposition home or self-care (01) ==
LOC: EMS 16:05
DX: F10.229 Alcohol dependence with intoxication, unspecified (principal); F31.9 Bipolar disorder, unspecified; F17.210 Nicotine dependence, cigarettes, uncomplicated; F15.90 Other stimulant use, unspecified, uncomplicated; F12.90 Cannabis use, unspecified, uncomplicated; F11.90 Opioid use, unspecified, uncomplicated; Z20.822 Contact with and (suspected) exposure to COVID-19; Y90.9 Presence of alcohol in blood, level not specified
CPT/HCPCS: 99283; 87426; 80053; 85025; 36415; 80307; G0480

== ENCOUNTER 2024-02-22 21:47 | Emergency (ER) | payer MEDICARE, OTHER ==
[~2024-02-22 21:47] MED LIST changes: -SERT-158 PO
== END 2024-02-22 22:28 | disposition left against medical advice (07) ==
LOC: EMS 21:47
DX: J00 Acute nasopharyngitis [common cold] (principal); Z53.21 Procedure and treatment not carried out due to patient leaving prior to being seen by health care provider